=== PATIENT | male | born 1940 | race Caucasian/White ===

== ENCOUNTER 2016-07-03 13:34 | Inpatient (IN) ==
[2016-07-03] MEDS ORDERED: ASPIRIN PO STA (13:41)
[2016-07-03 13:56] LABS: BASO% 0.1 % (0.0-0.8); HEMATOCRIT 41.6 % (42.0-52.0); HEMOGLOBIN 14.4 g/dL (14.0-18.0); IMM GRAN# 0.18 X1000 (0.0-0.04); IMM GRAN% 1.1 % (0.0-0.5); LYMPH% 5.5 % (20.5-51.1); MANUAL DIFF NEEDED? NO; MCH 33.4 PG (27-31); MCHC 34.6 g/dL (33-37); MCV 96.5 FL (81-99); MONO# 1.27 X1000 (0.11-0.59); MONO% 7.8 % (1.7-9.3); NEUT% 85.5 % (42.2-75.2); PLT 275 X1000 (130-400); RBC 4.31 XMIL (4.7-6.1)
[2016-07-03 14:05] LABS: INR 0.92 (0.86-1.15); PROTIME 12.7 Seconds (12.1-15.5)
[2016-07-03 14:06] LABS: PTT PL 29.9 Seconds (22.6-43.9)
[2016-07-03 14:12] LABS: ALBUMIN 4.2 g/dL (3.5-5.0); CALCIUM 9.7 mg/dL (8.8-10.2); MAGNESIUM 1.4 mg/dL (1.5-2.7); POTASSIUM 4.5 mmol/L (3.5-5.1); TOTAL BILIRUBIN 0.7 mg/dL (0.20-1.00); TOTAL PROTEIN 7.4 g/dL (6.3-8.3)
--- NOTE | 2016-07-03 14:36 | EKG Report ---
Test Performed on : 07/03/2016 1:43:42 PM Test Reason : CHEST PAIN Blood Pressure : / mmHG Vent. Rate : 115 BPM Atrial Rate : 345 BPM P-R Int : 000 ms QRS Dur : 080 ms QT Int : 296 ms P-R-T Axes : 019 014 065 degrees QTc Int : 409 ms Atrial flutter. with 3:1 AV conduction. Abnormal ECG When compared with ECG of 23-MAY-2016 13:25, Atrial flutter. has replaced Sinus rhythm. Unconfirmed Result
[2016-07-03] MEDS ORDERED: NS 1,000 ML IV ONE (14:44)
[2016-07-03 14:50] LABS: CK INDEX 2.5 (0.0-2.5); CK-MB 6.52 ng/mL (0.0-5.0)
--- NOTE | 2016-07-03 15:13 | Diag Imaging Result Document ---
PROCEDURE NAME: CHEST-2 VIEWS - 07/03/2016 FRONTAL AND LATERAL CHEST, 2 VIEWS. COMPARISON: Compared to 05/23/2016. FINDINGS: There are sternal wires and surgical clips. Heart is not enlarged. No pleural effusions. Atelectasis or fibrosis in the left base. No free air beneath the diaphragm. IMPRESSION: Stable chest.
[2016-07-03] MEDS ORDERED: MAGNESIUM SULFATE 4 GM/S.W.I. 4 GM/100 ML IVPB IV ONE (15:21)
[2016-07-03] MEDS ORDERED: CARDIZEM IV ONE (15:27)
--- NOTE | 2016-07-03 15:44 | Diag Imaging Result Document ---
PROCEDURE NAME: HEAD W/O CONTRAST - 07/03/2016 CT BRAIN WITHOUT CONTRAST: FINDINGS: No parenchymal hemorrhage. No epidural or subdural hematoma. No subarachnoid hemorrhage. No skull fracture. There is diffuse atrophy with mild microvascular ischemic changes. No sinus opacification. No air-fluid levels. IMPRESSION: 1. No hemorrhage. No injury. 2. Atrophy with chronic microvascular ischemic changes. A preliminary report was given at 3:24 p.m.
--- NOTE | 2016-07-03 16:52 | Diag Imaging Result Document ---
PROCEDURE NAME: SHOULDER-LEFT - 07/03/2016 LEFT SHOULDER THREE VIEWS INCLUDING AN AXILLARY Y VIEW: FINDINGS: No separation at the acromioclavicular joint. No fracture. No dislocation. IMPRESSION: No acute abnormality.
[2016-07-03] MEDS ORDERED: VENTOLIN HFA INH PRN (16:53)
[2016-07-03] MEDS ORDERED: APRESOLINE IV PRN (16:53)
--- NOTE | 2016-07-03 16:55 | HISTORY AND PHYSICAL ---
PRIMARY CARE PHYSICIAN: Dr. Mervin Lazaro. CHIEF COMPLAINT: Altered mental status and having hallucinations. Also had a fall on Tuesday with some left shoulder pain. HISTORY OF PRESENTING ILLNESS: This is a 75-year-old male, who presents to [facility] ER with complaints of altered mental status, having hallucinations. Patient's is at bedside and states that he had a fall on Tuesday at home. He did not lose any consciousness. Did complain of some left shoulder pain but over the past 2 or 3 days since the fall he has had a decreased appetite and not been drinking as well, primarily only drinking only Coke and coffee. Now she states he has been seeing people enter their home and move around the home that are not present, increased confusion. When he arrived to the emergency room his white blood cell count was 16.28. His sodium was 119. Chloride 78, BUN of 25 with a creatinine of 1.4. He is being admitted for further evaluation and treatment. PAST MEDICAL HISTORY: COPD, anxiety, depression and hypertension. PAST SURGICAL HISTORY: Heart stent placement. FAMILY HISTORY: Noncontributory. SOCIAL HISTORY: Currently lives with his . Smokes 1 pack of cigarettes a day for 55 years but has been quit for about 2 years. Denied any alcohol or illicit drug use. ALLERGIES: He does not have any known allergies. HOME MEDICATIONS: He takes ProAir inhalation p.r.n. Xanax 0.25 mg p.o. at bedtime. Brovana nebulizer b.i.d. Aspirin 81 mg p.o. daily. Pulmicort 0.25 mg inhalation b.i.d. Bupropion XL 150 p.o. b.i.d. Vitamin B12 with folic acid 1 sublingually daily. Vytorin 10/40 we will hold but he takes 1 daily. Loratadine 10 mg p.o. daily. Metoprolol 50 mg p.o. daily. Asmanex 220 mcg inhalation b.i.d. Benicar with hydrochlorothiazide 40/25 1 p.o. daily will be held. Prednisone 20 mg p.o. b.i.d. p.r.n. will be held. Spiriva 1 inhalation daily. LABORATORY DATA: Showed a white blood cell count of 16.28, hemoglobin of 14.4, hematocrit 41.6, platelets 275,000. PT and INR of 12.7 and 0.92 with a D-dimer of 0.40. Sodium of 119, potassium 4.5, chloride 78, CO2 25. BUN of 25, creatinine 1.4, glucose 121, magnesium 1.4. Creatine kinase was 256 with a CK-MB of 6.52, troponin less than 0.010 with a proBNP of 929. CT of the head is pending. Chest x-ray is pending. EKG showed some atrial fibrillation flutter at 115. REVIEW OF SYSTEMS: He denied any fever, chills, blurred vision, dizziness. Denied any chest pain, coughing, shortness of breath. He denied any abdominal pain, constipation , diarrhea, burning or hurting with urination. PHYSICAL EXAMINATION: VITAL SIGNS: On arrival showed a pulse of 113, respirations 26, blood pressure was 162/113. Saturating 95% on room air. GENERAL: This is a 75-year-old male, who is sitting up in the bed, and answers questions appropriately. HEENT: Normocephalic and atraumatic. Pupils are equal, round, reactive to light. Extraocular movements are intact. Oropharynx and nares are clear. NECK: Supple. LUNGS: Clear to auscultation bilaterally with equal lung expansion and chest wall movement. HEART: With irregular rate and rhythm. No murmurs, rubs, or gallops. ABDOMEN: Soft, nontender, nondistended. Bowel sounds are present x4 quadrants. EXTREMITIES: No clubbing, cyanosis, or edema. NEUROLOGICAL: The cranial nerves 2-12 are grossly intact. ASSESSMENT: 1. Altered mental status. 2. Hyponatremia. 3. Leukocytosis. 4. Acute kidney injury. 5. Hypomagnesemia. 6. Atrial flutter and it is unsure if this is a new diagnosis but it appears it may be. 7. Hypertension. PLAN: He is being admitted. Placed on telemetry. O2 per protocol. Neuro checks q.2 hours. Healthy heart diet. We will check a urine osmolality, creatinine and sodium. Will also check a urinalysis with possible reflex culture. We will recheck a BMP at 7 p.m. tonight. We are going to x-ray his left shoulder. Continue his home medications. Place on normal saline at 125 mL an hour. We will give him Cardizem 10 mg IV x1. We will give him some hydralazine 10 mg IV every 6 p.r.n. for a systolic greater than 180 and diastolic greater than 100. Pt is a full code. Dictated by PAM Mabry for Mert Florian MD cc: PAM Mabry MD Johnathan Scribe [facility] CENTERMadelin
[2016-07-03 17:24] LABS: URINE SOURCE CLEAN CATCH
[2016-07-03 17:34] LABS: BILIRUBIN URINE NEGATIVE (NEGATIVE); BLOOD URINE NEGATIVE (NEGATIVE); CLARITY CLEAR (CLEAR); COLOR YELLOW; GLUCOSE URINE NEGATIVE (NEGATIVE); LEUKOCYTES URINE TRACE (NEGATIVE); NITRITE URINE NEGATIVE (NEGATIVE); PROTEIN URINE NEGATIVE (NEGATIVE); SP GRAVITY URINE 1.005; UROBILINOGEN URINE NORMAL
[2016-07-03 17:38] LABS: UR CREAT RANDOM 57.2 mg/dL (14-26)
[2016-07-03] MEDS: NS 1,000 ML IV SCH ×2 (17:46→20:54)
[2016-07-03 18:04] LABS: URINE CAST NONE SEEN /LPF; URINE CRYSTAL NONE SEEN /HPF; URINE CULTURE PL NEEDED? YES; URINE EPITHELIAL CELLS <10 /HPF (<10); URINE WBC <10 /HPF (<10)
[2016-07-03] MEDS ORDERED: MOMETASONE FUROATE IH SCH (19:30)
[2016-07-03] MEDS: PULMICORT INH SCH (20:10)
[2016-07-03] MEDS: BROVANA NEB INH SCH (20:11)
[2016-07-03] MEDS: WELLBUTRIN XL PO SCH (20:53)
[2016-07-03] MEDS: XANAX PO SCH (20:53)
[2016-07-03] MEDS ORDERED: MOMETASONE FUROATE 220 MCG IH SCH (21:00)
[2016-07-03 22:02] LABS: CALCIUM 9.1 mg/dL (8.8-10.2); POTASSIUM 4.2 mmol/L (3.5-5.1)
[2016-07-04] MEDS: NS 1,000 ML IV SCH ×4 (01:48→20:52)
[2016-07-04 06:20] LABS: MANUAL DIFF NEEDED? NO
[2016-07-04 06:25] LABS: BASO% 0.1 % (0.0-0.8); EOS# 0.05 X1000 (0.0-0.7); EOS% 0.5 % (0.0-10.0); HEMATOCRIT 36.3 % (42.0-52.0); HEMOGLOBIN 12.5 g/dL (14.0-18.0); IMM GRAN# 0.12 X1000 (0.0-0.04); IMM GRAN% 1.1 % (0.0-0.5); LYMPH# 1.92 X1000 (1.2-3.4); MCH 33.1 PG (27-31); MCHC 34.4 g/dL (33-37); MONO# 1.34 X1000 (0.11-0.59); MONO% 12.6 % (1.7-9.3); MPV 8.1 FL (7.4-10.4); NEUT% 67.7 % (42.2-75.2); PLT 197 X1000 (130-400); RBC 3.78 XMIL (4.7-6.1)
[2016-07-04 06:57] LABS: AGAP 15; BUN 18 mg/dL (8-22); CALCIUM 8.5 mg/dL (8.8-10.2); CHLORIDE 87 mmol/L (98-107); COSMO 254; POTASSIUM 3.5 mmol/L (3.5-5.1); SODIUM 126 mmol/L (136-145); TCO2 24 mmol/L (25-35)
[2016-07-04] MEDS: VITAMIN B-12 PO SCH (08:46)
[2016-07-04] MEDS: TOPROL XL PO SCH (08:46)
[2016-07-04] MEDS: WELLBUTRIN XL PO SCH ×2 (08:46→20:53)
[2016-07-04] MEDS: ASPIRIN EC PO SCH (08:46)
[2016-07-04] MEDS: CLARITIN PO SCH (08:46)
[2016-07-04] MEDS: BROVANA NEB INH SCH ×2 (11:01→19:32)
[2016-07-04] MEDS: SPIRIVA INH SCH (11:01)
[2016-07-04] MEDS: PULMICORT INH SCH ×2 (11:01→19:32)
[2016-07-04] MEDS ORDERED: SAMSCA PO ONE ×2 (14:02→16:15)
--- NOTE | 2016-07-04 16:39 | PROGRESS NOTE ---
DATE: 07/04/2016 SUBJECTIVE: Today Mr. Odonnell refers to be doing a little better. Continued to have episode of wax and wane memory issues. OBJECTIVE: Vitals: Blood pressure is 130/88, pulse of 100, respirations 18, temperature 98.6 degrees. General: Mr. Odonnell 75-year-old male. He is in bed, not seemingly distressed. HEENT: Mucosa is pink, slightly dry. Anicteric and acyanotic. Neck: Supple. Chest: Barrel shape. Air entry bilaterally reduced. There is some end-expiratory wheezing and there is prolonged expiratory phase of respiration but no crepitations. Cardiovascular: Regular rate and rhythm. No murmurs, no rubs. No gallops. There is an old sternotomy scar on the anterior chest wall. Abdomen: Soft, is distended and nontender. CENTRAL STERILE TECH: Patient is alert, is oriented to person and to place. Was disoriented to time. Patient was not able to tell me the name of the pharmacy coordinator early this morning however when I went back this afternoon and the was there he was more alert and was able to tell me the name of the President. There is no focal neurological deficit. LABORATORY DATA: WBC is 10.66, hemoglobin is 12.5, platelet count is 197,000. Chemistry. Sodium is 126, potassium is 3.5, chloride is 87, bicarb is 24, serum osmolality has been 248, 254, the urine osmolarity however is 391 with urine sodium of 43. ASSESSMENT: 1. Altered mental status on presentation due to metabolic encephalopathy. This seems to be improving. 2. Baseline cognitive decline likely due to Alzheimer dementia. 3. Dehydration improved. 4. Hyponatremia. I think this is multifactorial. Patient seems clinically dehydrated and he is responding very well to intravenous hydration however the urinalysis is also consistent with syndrome of inappropriate antidiuretic hormone secretion. We would therefore continue with gentle hydration but I will give the patient also a dose of Samsca to make sure we do not retain any free water. 5. History of chronic obstructive pulmonary disease noted. 6. Atrial flutter on presentation. This is stable. Now I think it is paroxysmal and patient will need to be evaluated on outpatient basis with Cardiology. He would however will need to be on anticoagulation which we will start with Eliquis. 7. Acute kidney injury secondary to volume depletion. This has improved. So in general Mr. Odonnell is doing a whole lot better. Will continue with the gentle hydration, give him a dose of Samsca, start him on Eliquis for anticoagulation due to atrial flutter which resolved with a dose of diltiazem on admission and I think eventually patient will need followup with cardiology for the atrial fibrillation when he gets discharged. I think if everything continues to improve will be able to discharge him tomorrow. cc: Mert Florian MD
[2016-07-04] MEDS: XANAX PO SCH (20:53)
[2016-07-05] MEDS: NS 1,000 ML IV SCH ×3 (02:09→10:01)
[2016-07-05 06:47] LABS: AGAP 12; BUN 13 mg/dL (8-22); CALCIUM 8.4 mg/dL (8.8-10.2); CHLORIDE 96 mmol/L (98-107); COSMO 265; POTASSIUM 3.7 mmol/L (3.5-5.1); SODIUM 133 mmol/L (136-145); TCO2 24 mmol/L (25-35)
[2016-07-05] MEDS: BROVANA NEB INH SCH (08:01)
[2016-07-05] MEDS: SPIRIVA INH SCH (08:01)
[2016-07-05] MEDS: PULMICORT INH SCH (08:01)
[2016-07-05] MEDS: WELLBUTRIN XL PO SCH (08:41)
[2016-07-05] MEDS: ASPIRIN EC PO SCH (08:41)
[2016-07-05] MEDS: TOPROL XL PO SCH (08:41)
[2016-07-05] MEDS: VITAMIN B-12 PO SCH (08:41)
[2016-07-05] MEDS: CLARITIN PO SCH (08:41)
[2016-07-05 16:31] VITALS: BP 135/75
[2016-07-05] MEDS ORDERED: ELIQUIS PO SCH (21:00)
--- NOTE | 2016-07-06 06:52 | DISCHARGE SUMMARY ---
ADMISSION DATE: 07/03/2016 DISCHARGE DATE: 07/05/2016 DISCHARGE DIAGNOSES: 1. Encephalopathy, metabolic due to hyponatremia. 2. Alzheimer's dementia. 3. Dehydration. 4. Hyponatremia, likely related to possibly hydrochlorothiazide affect versus syndrome of inappropriate antidiuretic hormone hypersecretion. 5. Chronic obstructive pulmonary disease. 6. Atrial flutter. 7. Acute kidney injury. CONSULTATIONS: None. HISTORY: Briefly, this is a 75-year-old male presenting with confusion, passed out. Initial white count 16. Sodium was 119, chloride 78, BUN 25, creatinine 1.4. He is on olmesartan/hydrochlorothiazide. He also had a flutter, which was a new diagnosis. He was a little bit tachycardic but not above 120. Clinically, he improved. By the following day, his sodium had increased to a level of around 126. He was given Samsca based on his urine results but did show an elevated urine osmolarity and a relatively elevated urine sodium. Normal saline essentially resolved the issue. By the his sodium had come up to 133. Clinically, he was stable and felt stable for discharge. He was placed on Eliquis because of A flutter and CHADS VASc 2 scoring. DISCHARGE MEDICINES: Are ProAir p.r.n., Xanax 0.25 at bedtime, Eliquis 5 b.i.d., Brovana 15 b.i.d., aspirin 81 daily, Pulmicort 0.25 b.i.d., bupropion 150 b.i.d., B12 sublingual daily, Vytorin 10/40 daily, loratadine 10 daily, Toprol-XL 50 daily, Asmanex 220 b.i.d. Benicar was switched to plain Benicar 40 daily. Prednisone on a p.r.n. dose and Spiriva daily. DISCHARGE CONDITION: Stable. DISCHARGE INSTRUCTIONS: He will need repeat basic in about a week. Monitor his salt and water intake. TIME SPENT: Thirty-five minute discharge. cc: MD Mervin Blankenship MD
--- NOTE | 2016-07-07 19:01 | PROVIDER DOCUMENTATION ---
This chart was entered by Heidi Rebolledo Scribe, acting as scribe for Niko Robles MD. HPI-Neurological Disorder - General Chief Complaint: Altered Mental Status Stated Complaint: COPD/PALPITATIONS/AMS Time Seen by Provider: 07/03/16 14:13 Source: patient, family Allergies/Adverse Reactions: Patient Allergies Allergy/AdvReac Type Severity Reaction Status Date / Time No Known Allergies Allergy Verified 07/03/16 13:45 Home Medications: Home Medication List Medication Instructions Recorded Confirmed Last Taken Type Aspirin [Ecotrin] 81 mg PO DAILY 08/23/15 07/03/16 08/22/15 History Ezetimibe/Simvastatin [Vytorin 1 each PO DAILY 08/23/15 07/03/16 08/22/15 History 10-40 mg Tablet] Metoprolol Succinate E.r. [Toprol 50 mg PO DAILY 08/23/15 07/03/16 08/23/15 History Xl] Mometasone Furoate [Asmanex] 220 mcg IH BID 08/23/15 07/03/16 08/22/15 History Albuterol Sulfate [Proair Hfa] 1 puff IN PRN PRN 06/08/16 07/03/16 Unknown History Alprazolam 0.25 mg PO HS 06/08/16 07/03/16 Unknown History Arformoterol Neb [Brovana Neb] 15 mcg NEB BID 06/08/16 07/03/16 Unknown History Budesonide Inhaler [Pulmicort 0.25 mg IN BID 06/08/16 07/03/16 Unknown History Flexhaler] Bupropion HCl [Bupropion Xl] 150 mg PO BID 06/08/16 07/03/16 Unknown History Cyanocobalamin/Folic Acid [B-12 1 each SL DAILY 06/08/16 07/03/16 Unknown History 1,000 Mcg Sub Tablet] Loratadine [Alavert] 10 mg PO DAILY 06/08/16 07/03/16 Unknown History Tiotropium [place] Inhaler 1 puff IH DAILY 06/08/16 07/03/16 Unknown History [Spiriva] Prednisone 20 mg PO BID PRN PRN 07/03/16 07/03/16 07/03/16 History Apixaban [Eliquis] 5 mg PO BID #60 tablet 07/05/16 Unknown Rx Olmesartan [Benicar] 40 mg PO DAILY #30 tablet 07/05/16 Unknown Rx - History of Present Illness-Neuro Nature of Presenting Problem: 75 yo WM presents to ED with cc of hallucinations, altered mental status, and dizziness. Pt states he has been seeing people entering and moving around his home, but family reports there is no one there. He also complains of L shoulder pain from an injury in which he tripped and fell from standing height. Pt has hx of COPD. Upon arrival to ED, pt is oriented and appears nontoxic. Onset/Duration: reports: unsure Timing: reports: still present Context: reports: other (hallucinations) Character of Altered Mental Status: reports: disoriented (appears fairly well oriented in ED but admits to hallucinations), confused (appears relatively lucid in ED but admits to hallucinations). denies: combative, seizure activity Any recent trauma/injury?: reports: minor (fall from standing height, contusions on LLQ and L arm) New weakness or altered sensation location:: reports: none Cognitive Baseline: alert, oriented x3 Associated Symptoms: reports: dizziness Review of Systems - Adult - REVIEW OF SYSTEMS - ADULT Constitutional: reports: no symptoms reported. denies: chills, fever Eyes: reports: no symptoms reported. denies: blurred vision, double vision Ears, Nose, Mouth & Throat: reports: no symptoms reported. denies: ear pain, sinus problem Cardiovascular: reports: no symptoms reported. denies: chest pain, heart murmur Respiratory: reports: no symptoms reported. denies: cough, shortness of breath Gastrointestinal: reports: no symptoms reported. denies: abdominal pain, nausea Genitourinary: reports: no symptoms reported. denies: dysuria, flank pain Musculoskeletal: reports: joint pain (Pt reports pain in L elbow from fall injury) Integumentary: reports: no symptoms reported Neurological: reports: dizziness/vertigo, other (hallucinatios). denies: headache/migraines Psychiatric: reports: other (hallucinations; no hx of psychosis) Endocrine: reports: no symptoms reported. denies: cold intolerance, heat intolerance Hematologic/Lymphatic: reports: no symptoms reported. denies: blood clots, lymphedema Allergic/Immunologic: reports: no symptoms reported. denies: allergic reactions , allergic rhinitis All Other Systems: Reviewed and Negative Past History - Adult - PAST MEDICAL HISTORY-ADULT Review of Records: reports: Old Records Reviewed, Nursing Assessment Review, Medications Reviewed Respiratory: reports: COPD - PRIOR SURGERIES/PROCEDURES Surgical/Procedure History: reports: cardiac stent - IMMUNIZATION STATUS Childhood Immunizations: See Nurse Assessment Flu Vaccine: See Nurse Assessment Physical Exam- Neurological - Physical Exam-Neuro Initial Vital Signs Reviewed: Yes General Appearance: mild distress, slow to respond Eye Exam: bilateral eye: normal inspection, PERRL, EOMI HENMT: normocephalic/atraumatic, moist mucous membranes Head Injury: no evidence of injury Neck: non-tender, full range of motion, supple Respiratory: chest non-tender, rhonchi Cardiovascular: normal peripheral pulses, regular rate, rhythm Abdominal Exam: normal bowel sounds, non tender, soft Lymphatic: no adenopathy Extremity: other (Painful ROM L shoulder) lan analyst Exam: normal hearing, normal speech, PERRL Motor/Sensory: no motor deficit, no sensory deficit Neurologic: grossly normal, no motor/sensory deficits Integumentary: other (Contusions on LLQ and L arm from recent fall from standing height) Psych/Mental Status: normal mood/affect, normal thought content, normal thought process, oriented x 3 - Glascow Coma Scale Best Eye Response: (4) open spontaneously Best Verbal Response: (5) oriented Best Motor Response: (6) obeys commands Total Glascow Score: 15 Progress - PLAN OF CARE/RESULTS Progress/Plan/Lab Results: Orders Category Date Time Status Admit - [facility] Routine AdmDCTranf 07/03/16 14:44 Ordered Cardiac Monitoring DIRECTED Care 07/03/16 13:41 Completed Neurological Check q2h Care 07/03/16 14:44 Active Saline Loc NOW Care 07/03/16 13:41 Completed Vital Signs Order ARRIVAL TO ROOM Care 07/03/16 14:44 Completed Heart Healthy Diet Diet 07/03/16 15:08 Completed CHEST-2 VIEWS [RAD] Stat Exams 07/03/16 13:41 Completed HEAD W/O CONTRAST [CT] Stat Exams 07/03/16 14:40 Completed SHOULDER-LEFT [RAD] Routine Exams 07/03/16 15:10 Completed BASIC METABOLIC PANEL [CHEM] Timed Lab 07/03/16 21:00 Completed CBC WITH ELECTRONIC DIFF [HEME] Stat Lab 07/03/16 13:35 Completed CK PROFILE [SP CHEM] Stat Lab 07/03/16 13:35 Completed COMPREHENSIVE METABOLIC PANEL [CHEM] Stat Lab 07/03/16 13:35 Com[address] D-D[address]ER [address] [COAG] Stat Lab 07/03/16 13:35 Completed MAGNESIUM [CHEM] Routine Lab 07/04/16 05:45 Completed MAGNESIUM [CHEM] Stat Lab 07/03/16 13:35 Completed PRO B-NATRIURETIC PEPTIDE Stat Lab 07/03/16 13:35 Completed PROTIME WITH INR PL [COAG] Stat Lab 07/03/16 13:[address] [COAG] Stat Lab 07/03/16 13:35 Completed TROPONIN T Stat Lab 07/03/16 13:35 Completed UR CREAT RANDOM [URCHEM] Routine Lab 07/03/16 15:07 Completed UR OSMOLALITY [CHEM] Stat Lab 07/03/16 15:45 Completed UR SODIUM [URCHEM] Routine Lab 07/03/16 15:07 Completed 0.9% Sodium Chloride Inj [Ns] 1,000 ml Med 07/03/16 14:44 Discontinued IV 125 mls/hr 0.9% Sodium Chloride Inj [Ns] 1,000 ml Med 07/03/16 16:53 Discontinued IV 125 mls/hr Albuterol Sulfate Inhaler [Ventolin Hfa] Med 07/03/16 16:53 Discontinued 1 puff INH PRN PRN Alprazolam [Xanax] Med 07/03/16 21:00 Discontinued 0.25 mg PO HS Arformoterol Neb [Brovana Neb] Med 07/03/16 19:30 Discontinued 15 microgm INH RTBID Aspirin Med 07/03/16 13:41 Discontinued 325 mg PO STAT STA Aspirin EC Med 07/04/16 09:00 Discontinued 81 mg PO DAILY Budesonide [Pulmicort] Med 07/03/16 19:30 Discontinued 0.25 mg INH RTBID Bupropion X.l. [Wellbutrin Xl] Med 07/03/16 21:00 Discontinued 150 mg PO BID Cyanocobalamin [Vitamin B-12] Med 07/04/16 09:00 Discontinued 1,000 microgm PO DAILY Loratadine [Claritin] Med 07/04/16 09:00 Discontinued 10 mg PO DAILY Magnesium Sulfate 4 gm/S.w.i. [Magnesium Sulfate 4 gm/S Med 07/03/16 15:21 Discontinued .w.i] 4 gm in 100 ml IV NOW Metoprolol Succinate E.r. [Toprol Xl] Med 07/04/16 09:00 Discontinued 50 mg PO DAILY Tiotropium [place] Inhaler [Spiriva] Med 07/04/16 07:30 Discontinued 1 puff INH RTDAILY Oxygen Device Routine Oth 07/03/16 14:46 Completed Telemetry [OM.EQ] Routine Oth 07/03/16 14:44 Active EKG [EKG] Stat Ther 07/03/16 13:41 Draft Transfer/Admit Order [TRANSFER] Routine Transfer 07/03/16 14:46 Completed Result Diagrams: 07/04/16 05:45 07/05/16 05:25 - EKG 1 Time of EKG reading by physician:: 13:43 EKG Read and Signed by:: Niko Robles EKG Interpretation (*Must complete 3 of following elements*): Abnormal Rate: 115 Rhythm: atrial flutter with 3:1 AV conduction QRS: normal Departure - Departure Time of Disposition Decision: 15:22 DIAGNOSIS: Hyponatremia Altered mental state Qualifiers: Altered mental status type: unspecified Qualified Code(s): R41.82 - Altered mental status, unspecified Disposition: ADMITTED INPATIENT 09 Certified Medical Emergency: Emergent Condition: Stable - Critical Care Note This patient required my direct & personal management of CC.: No Attestation - Physician/ KAYLA Attestation Patient care was provided by Advanced Practice Provider:: No This chart was documented by the indicated scribe, (Heidi Rebolledo Scribe) and accurately reflects the services I performed and decisions made by me, Niko Robles MD, as attested by the provider's signature.
== END 2016-07-05 16:30 | disposition home health service (06) ==
LOC: P.ED 13:34 → P.MEDSURG 15:22 → SUATTDRO 15:22
PROVIDERS: ATTEND Internal Medicine

== ENCOUNTER 2016-07-25 17:47 | Inpatient (IN) ==
[2016-07-25] MEDS ORDERED: NS 1,000 ML IV PRN ×2 (18:30→20:20)
[2016-07-25] MEDS ORDERED: LASIX IV ONE (18:30)
[2016-07-25] MEDS ORDERED: NITROGLYCERIN TOP ONE (18:30)
[2016-07-25 18:54] LABS: MANUAL DIFF NEEDED? NO
[2016-07-25 19:14] LABS: BASO% 0.1 % (0.0-0.8); EOS# 0.01 X1000 (0.0-0.7); EOS% 0.1 % (0.0-10.0); HEMATOCRIT 36.6 % (42.0-52.0); HEMOGLOBIN 11.3 g/dL (14.0-18.0); IMM GRAN# 0.05 X1000 (0.0-0.04); IMM GRAN% 0.4 % (0.0-0.5); LYMPH# 1.32 X1000 (1.2-3.4); LYMPH% 11.7 % (20.5-51.1); MCH 32.5 PG (27-31); MCHC 30.9 g/dL (33-37); MCV 105.2 FL (81-99); MONO# 0.98 X1000 (0.11-0.59); MONO% 8.7 % (1.7-9.3); MPV 8.5 FL (7.4-10.4); PLT 280 X1000 (130-400); RBC 3.48 XMIL (4.7-6.1)
[2016-07-25 19:22] LABS: AGAP 11; ALKALINE PHOSPHATASE 50 U/L (32-122); BUN 11 mg/dL (8-22); CALCIUM 8.8 mg/dL (8.8-10.2); CHLORIDE 95 mmol/L (98-107); COSMO 272; GOT 19 U/L (10-34); GPT 19 U/L (10-44); POTASSIUM 4.3 mmol/L (3.5-5.1); SODIUM 134 mmol/L (136-145); TCO2 28 mmol/L (25-35); TOTAL PROTEIN 6.5 g/dL (6.3-8.3)
[2016-07-25] MEDS ORDERED: TYLENOL PO PRN (20:11)
[2016-07-25] MEDS ORDERED: ZOFRAN PO PRN (20:11)
--- NOTE | 2016-07-25 20:24 | PROVIDER DOCUMENTATION ---
This chart was entered by Sandra Alberts Scribe, acting as scribe for Anthony Castellanos MD. HPI-Respiratory General - General Chief Complaint: Shortness of Breath Stated Complaint: CONFUSION/B/P PROBLEMS Time Seen by Provider: 07/25/16 18:19 Source: patient Allergies/Adverse Reactions: Patient Allergies Allergy/AdvReac Type Severity Reaction Status Date / Time No Known Allergies Allergy Verified 07/03/16 13:45 Home Medications: Home Medication List Medication Instructions Recorded Confirmed Last Taken Type Aspirin [Ecotrin] 81 mg PO DAILY 08/23/15 07/25/16 07/25/16 History Ezetimibe/Simvastatin [Vytorin 1 each PO DAILY 08/23/15 07/25/16 07/25/16 History 10-40 mg Tablet] Metoprolol Succinate E.r. [Toprol 50 mg PO DAILY 08/23/15 07/25/16 07/25/16 History Xl] Mometasone Furoate [Asmanex] 220 mcg IH BID 08/23/15 07/25/16 07/25/16 History Albuterol Sulfate [Proair Hfa] 1 puff IN PRN PRN 06/08/16 07/25/16 07/25/16 History Alprazolam 0.25 mg PO HS 06/08/16 07/25/16 07/25/16 History Arformoterol Neb [Brovana Neb] 15 mcg NEB BID 06/08/16 07/25/16 07/25/16 History Budesonide Inhaler [Pulmicort 0.25 mg IN BID 06/08/16 07/25/16 07/25/16 History Flexhaler] Bupropion HCl [Bupropion Xl] 150 mg PO BID 06/08/16 07/25/16 07/25/16 History Cyanocobalamin/Folic Acid [B-12 1 each SL DAILY 06/08/16 07/25/16 07/25/16 History 1,000 Mcg Sub Tablet] Loratadine [Alavert] 10 mg PO DAILY 06/08/16 07/25/16 07/25/16 History Tiotropium Arvilla Inhaler 1 puff IH DAILY 06/08/16 07/25/16 07/25/16 History [Spiriva] Prednisone 20 mg PO BID PRN PRN 07/03/16 07/25/16 07/25/16 History Apixaban [Eliquis] 5 mg PO BID #60 tablet 07/05/16 07/25/16 07/25/16 Rx Olmesartan [Benicar] 40 mg PO DAILY #30 tablet 07/05/16 07/25/16 07/25/16 Rx - History of Present Illness-Resp Nature of Presenting Problem: Pt is a 75 year old male who came to the ED with a cc of SOB. Pt reports that he was recently admitted to the Hospital with low sodium. Pt reports that he thinks that is what is going on today. Pt is confused off and on all day and having trouble breathing. Quality of Pain: reports: none Severity in ED: reports: mild Onset/Duration: reports: gradual Timing: reports: still present Exposure: reports: unknown cause Cough Quality/Degree: reports: no cough Episode Frequency: chronic episodes Modifying Factors: improves with: nothing Associated Symptoms: reports: shortness of breath, short of breath Similar Symptoms Previously?: Yes Recently seen or treated by another doctor?: Yes Review of Systems - Adult - REVIEW OF SYSTEMS - ADULT Constitutional: denies: chills, fever Eyes: reports: no symptoms reported Ears, Nose, Mouth & Throat: reports: no symptoms reported Cardiovascular: reports: no symptoms reported Respiratory: reports: shortness of breath. denies: cough, pleurisy, wheezing Gastrointestinal: reports: no symptoms reported Genitourinary: reports: no symptoms reported Musculoskeletal: reports: no symptoms reported Integumentary: reports: no symptoms reported Neurological: reports: other (AMS). denies: seizure, syncope Psychiatric: reports: no symptoms reported Endocrine: reports: no symptoms reported Hematologic/Lymphatic: reports: no symptoms reported Allergic/Immunologic: reports: no symptoms reported All Other Systems: Reviewed and Negative Past History - Adult - PAST MEDICAL HISTORY-ADULT Review of Records: reports: Nursing Assessment Review Major Childhood Illnesses: reports: denies history Cardiovascular: reports: HTN, hyperlipidemia Respiratory: reports: COPD Gastrointestinal: reports: denies history Obstetrical/Gynecological: reports: denies history Genitourinary: reports: denies history Musculoskeletal: reports: denies history Neurological: reports: dementia Endocrine/Immune: reports: denies history Other Conditions: reports: denies history - PRIOR SURGERIES/PROCEDURES Surgical/Procedure History: reports: cardiac stent - IMMUNIZATION STATUS Childhood Immunizations: See Nurse Assessment Flu Vaccine: See Nurse Assessment - FAMILY HISTORY Family History: reviewed, not pertinent Physical Exam-General - PHYSICAL EXAM-ADULT Initial Vital Signs Reviewed: Yes - CONSTITUTIONAL General Appearance: alert, no apparent distress - EYES Eyes: PERRL/EOMI, pink conjunctivae - HEAD, EARS, NOSE, MOUTH & THROAT HENMT: normocephalic/atraumatic, moist mucous membranes - NECK Neck: non-tender - RESPIRATORY Respiratory: chest non-tender, crackles (bilat bases) - CARDIOVASCULAR Cardiovascular: tachycardia - GASTROINTESTINAL (ABDOMEN) Abdominal Exam: normal bowel sounds, non tender - MUSCULOSKELETAL Back Exam: normal inspection, no CVA tenderness Extremity: normal range of motion, non-tender - SKIN Integumentary: normal color, normal turgor - NEUROLOGIC Neurologic: cell tester II-XII nml as tested, grossly normal - PSYCHIATRIC Psych/Mental Status: normal mood/affect, normal thought content, normal thought process, oriented x 3 Progress - PLAN OF CARE/RESULTS Progress/Plan/Lab Results: Vital Signs - 8 hr 07/25/16 17:52 07/25/16 19:27 Temperature 98.5 F Pulse Rate 114 H 103 H Respiratory Rate 20 20 Blood Pressure 159/98 146/94 O2 Sat by Pulse Oximetry 96 98 Laboratory Results - last 24 hr 07/25/16 07/25/16 07/25/16 18:45 18:45 18:45 WBC 11.30 H RBC 3.48 L Hgb 11.3 L Hct 36.6 L MCV 105.2 H MCH 32.5 H MCHC 30.9 L RDW Std Deviation 13.9 Plt Count 280 MPV 8.5 Immature Gran % (Auto) 0.4 Neut % (Auto) 79.0 H Lymph % (Auto) 11.[address] [place] % (Auto) 8.7 Eos % (Auto) 0.1 Baso % (Auto) 0.1 Immature Gran # (Auto) 0.05 H Neut # (Auto) 8.93 H Lymph # (Auto) 1.32 [place] # (Auto) 0.98 H Eos # (Auto) 0.01 Baso # (Auto) 0.01 Sodium 134 L Potassium 4.3 Chloride 95 L Carbon Dioxide 28 Anion Gap 11 BUN 11 Creatinine 1.1 Estimated GFR/1.73 m2 > 60 BUN/Creatinine Ratio 10 Glucose 168 H Calculated Osmolality 272 Calcium 8.8 Total Bilirubin 0.20 AST 19 ALT 19 Alkaline Phosphatase 50 Troponin T Hpc-K-Vausschlwye Pept 1340 H Total Protein 6.5 Albumin 4.0 Globulin 3.0 Albumin/Globulin Ratio 2.0 07/25/16 18:45 WBC RBC Hgb Hct MCV MCH MCHC RDW Std Deviation Plt Count MPV Immature Gran % (Auto) Neut % (Auto) Lymph % (Auto) [place] % (Auto) Eos % (Auto) Baso % (Auto) Immature Gran # (Auto) Neut # (Auto) Lymph # (Auto) [place] # (Auto) Eos # (Auto) Baso # (Auto) Sodium Potassium Chloride Carbon Dioxide Anion Gap BUN Creatinine Estimated GFR/1.73 m2 BUN/Creatinine Ratio Glucose Calculated Osmolality Calcium Total Bilirubin AST ALT Alkaline Phosphatase Troponin T < 0.010 Qav-B-Menktcyasfr Pept Total Protein Albumin Globulin Albumin/Globulin Ratio Orders Category Date Time Status Admit - [facility] Routine AdmDCTranf 07/25/16 20:11 Ordered Activity - Bed Rest with BRP ORDERED Care 07/25/16 20:11 Active Intake and Output-Strict ORDERED Care 07/25/16 20:11 Active Neurological Check PRN Care 07/25/16 20:11 Active Resuscitation Status Routine Care 07/25/16 20:11 Ordered Saline Loc DIRECTED Care 07/25/16 20:11 Active Telemetry Placement ORDERED Care 07/25/16 20:13 Active Vital Signs Order ROUTINE Care 07/25/16 20:11 Active Heart Healthy Diet Diet 07/25/16 20:13 Active NPO Diet 07/26/16 00:01 Active CHEST-2 VIEWS [RAD] Stat Exams 07/25/16 18:24 Taken BNP [PRO B-NATRIURETIC PEPTIDE] Stat Lab 07/25/16 18:45 Completed CBC WITH DIFF [HEME] Stat Lab 07/25/16 18:45 Completed COMPREHENSIVE METABOLIC PANEL [CHEM] Routine Lab 07/26/16 07:00 Ordered COMPREHENSIVE METABOLIC PANEL [CHEM] Stat Lab 07/25/16 18:45 Completed TROPONIN T Routine Lab 07/26/16 07:00 Ordered TROPONIN T Stat Lab 07/25/16 18:45 Completed TROPONIN T Stat Lab 07/25/16 20:11 Ordered 0.9% Sodium Chloride Inj [Ns] 1,000 ml Med 07/25/16 18:30 Discontinued IV 100 mls/hr 0.9% Sodium Chloride Inj [Ns] 1,000 ml Med 07/25/16 20:20 Active IV 70 mls/hr Acetaminophen [Tylenol] Med 07/25/16 20:11 Active 650 mg PO Q6H PRN PRN Furosemide [Lasix] Med 07/25/16 18:30 Discontinued 20 mg IV NOW ONE Furosemide [Lasix] Med 07/26/16 09:00 Ordered 40 mg IV DAILY Metoprolol Succinate E.r. [Toprol Xl] Med 07/25/16 21:00 Ordered 25 mg PO NOW Nitroglycerin Med 07/25/16 18:30 Discontinued 1 inch TOP NOW ONE Ondansetron [Zofran] Med 07/25/16 20:11 Active 4 mg PO Q6H PRN PRN Oxygen Device Routine Oth 07/25/16 20:13 Active Telemetry [OM.EQ] Routine Oth 07/25/16 20:11 Active EKG [EKG] Routine Ther 07/26/16 07:00 Ordered EKG [EKG] Stat Ther 07/25/16 20:11 Ordered Limited Echocardiogram Routine Ther 07/26/16 09:00 Ordered Transfer/Admit Order [TRANSFER] Routine Transfer 07/25/16 20:21 Ordered Result Diagrams: 07/25/16 18:45 07/25/16 18:45 - XRAY 1 XRAY Study: Chest (fibrosis left base of lung. Increased haziness in right lung compared to xray in 07/03/16) - CONSULTS/PCP/HOSPITALIST Notification #1 *Consult/PCP/Hospitalist*: Dr. Florian Time Discussed: 20:04 Departure - Departure Date of Disposition Decision: 07/25/16 Time of Disposition Decision: 20:00 DIAGNOSIS: CHF (congestive heart failure), NYHA class II Qualifiers: Congestive heart failure type: combined Congestive heart failure chronicity: acute on chronic Qualified Code(s): I50.43 - Acute on chronic combined systolic (congestive) and diastolic (congestive) heart failure Disposition: ADMITTED INPATIENT 09 Certified Medical Emergency: Emergent Condition: Fair Referrals and Follow-Ups: Mervin Kulkarni MD [Primary Care Provider] - - Critical Care Note This patient required my direct & personal management of CC.: No This chart was documented by the indicated scribe, (Sandra Alberts, Nadira) and accurately reflects the services I performed and decisions made by me, Anthony Castellanos MD, as attested by the provider's signature.
[2016-07-25] MEDS ORDERED: TOPROL XL PO ONE (21:00)
--- NOTE | 2016-07-26 07:41 | Diag Imaging Result Doc PS360 ---
EXAM: CHEST-2 VIEWS HISTORY: sob TECHNIQUE: Two views COMPARISON: 07/03/2016 FINDINGS: There are sternal wires and surgical clips. The left hemidiaphragm is elevated. Heart is not enlarged. The vessels are not distended. No pleural effusions. There are increased interstitial markings in the left. IMPRESSION: Small area of atelectasis or infiltrate in the left base. Electronically signed by Horacio Orozco 07/26/2016 7:39 AM
[2016-07-26] MEDS ORDERED: VENTOLIN HFA INH PRN (08:14)
[2016-07-26] MEDS ORDERED: TYLENOL PO PRN (08:49)
[2016-07-26] MEDS ORDERED: ASMANEX 220 MICROGM INHALER INH SCH (09:00)
[2016-07-26] MEDS ORDERED: LASIX IV SCH (09:00)
[2016-07-26] MEDS: CLARITIN PO SCH (09:17)
[2016-07-26] MEDS: ZETIA PO SCH (09:17)
[2016-07-26] MEDS: ELIQUIS PO SCH ×2 (09:17→21:23)
[2016-07-26] MEDS: ASPIRIN EC PO SCH (09:18)
[2016-07-26] MEDS: WELLBUTRIN XL PO SCH ×2 (09:18→21:23)
[2016-07-26] MEDS: ZOCOR PO SCH (09:18)
[2016-07-26] MEDS: BENICAR PO SCH (09:19)
[2016-07-26] MEDS ORDERED: NON-FORMULARY BULK MED INH SCH (09:19)
[2016-07-26] MEDS: TOPROL XL PO SCH (09:19)
[2016-07-26] MEDS: VITAMIN B-12 PO SCH (09:19)
[2016-07-26] MEDS: LEVAQUIN 500 MG/D5W 500 MG/100 ML IVPB IV SCH (09:19)
--- NOTE | 2016-07-26 09:59 | HISTORY AND PHYSICAL ---
PRIMARY CARE PHYSICIAN: Dr. Kulkarni. CHIEF COMPLAINT: Shortness of breath, increased confusion and a productive cough of yellow sputum that began yesterday. HISTORY OF PRESENTING ILLNESS: This is a 75-year-old male, who presented to [facility] ER with complaints of increased shortness of breath, productive cough of yellow sputum, and increased confusion. States he was in the hospital recently with a hyponatremia and felt that this may be the same symptoms. It is noted that he was admitted on 07/03/2016 through 07/05/2016 with a hyponatremia that resolved. Last night in the ER showed a white blood cell count of 11.30. His sodium was 134. He had a slight bump in his ProBNP at 1340. Chest x-ray showed a small area of atelectasis or infiltrate in the left base, so he was admitted to the medical unit for further evaluation and treatment. He was noted to be saturating 96% on 4 L via nasal cannula; that has since been reduced to 2 L and he saturating 95-97% . He had a slight increase in his blood pressure on arrival at 159/98. It is noted that he was given 20 mg of Lasix IV in the ER and he had an I O of 150 and 1750 out. PAST MEDICAL HISTORY: 1. COPD. 2. Anxiety. 3. Depression. 4. Hypertension. 5. Atrial fibrillation. 6. Atrial flutter. 7. Hyperlipidemia. 8. Some mild dementia. 9. Hyponatremia. PAST SURGICAL HISTORY: Heart stent placement. FAMILY HISTORY: Noncontributory. SOCIAL HISTORY: Currently lives with his . Was a 1 pack a day smoker for 56 years but quit 2 years ago and denies any alcohol or illicit drug use. ALLERGIES: He has no known drug allergies. HOME MEDICATIONS: 1. Prednisone 20 mg p.o. b.i.d. p.r.n. will be held. 2. ProAir 1 puff inhalation p.r.n. 3. Xanax 0.25 mg p.o. at bedtime. 4. Eliquis 5 mg p.o. b.i.d. 5. Brovana 15 mcg nebulizer b.i.d. 6. Aspirin 81 mg p.o. daily. 7. Budesonide inhaler 0.25 mg b.i.d. 8. Bupropion XL 150 mg p.o. b.i.d. 9. Cyanocobalamin 1 sublingually daily. 10. Vytorin 10/40 1 p.o. daily. 11. Loratadine 10 mg p.o. daily. 12. Metoprolol 50 mg p.o. daily. 13. Asmanex 220 mcg inhalation b.i.d. 14. Benicar 40 mg p.o. daily. 15. Spiriva 1 inhalation daily. LABORATORY DATA: Showed a white blood cell count of 11.30, hemoglobin 11.3, hematocrit 36.6, platelets 280,000. Sodium of 134, potassium 4.3, chloride 95, CO2 28, BUN of 11 , creatinine 1.1. Glucose 168. Troponin x2 sets was negative. ProBNP of 1340. Chest x-ray showed a small area of atelectasis or infiltrate in the left base. REVIEW OF SYSTEMS: He denied any fever, chills, blurred vision, dizziness. He denied any chest pain. He was positive for a productive cough of yellow sputum, shortness of breath, some increased confusion. Denied any abdominal pain, constipation, diarrhea. She was positive for some nausea. Denied vomiting, burning or hurting with urination. PHYSICAL EXAMINATION: On arrival, he had a temperature of 98.5 degrees, a pulse of 114, respirations 20, blood pressure 159/98 with saturating 96% on 4 L via nasal cannula. He has since been weaned down to 2 L and is saturating 95-97%. GENERAL: This is a 75-year-old male, who is lying in the bed and answers questions appropriately. HEENT: Normocephalic and atraumatic. Pupils are equal, round, and reactive to light. The extraocular movements are intact. The oropharynx and nares are clear. NECK: Supple. LUNGS: With some crackles to his bilateral bases on arrival, but is clear this morning. Equal lung expansion and chest wall movement noted. HEART: With regular rate and rhythm. No murmurs, rubs, or gallops. ABDOMEN: Soft, nontender, nondistended. Bowel sounds are present x4 quadrants. EXTREMITIES: No clubbing, cyanosis, or edema. NEUROLOGICAL: The cranial nerves 2-12 appear grossly intact. ASSESSMENT: 1. An acute congestive heart failure exacerbation. 2. A left lower lobe pneumonia. 3. Hypertension. 4. Hyperlipidemia. PLAN: He was admitted to the medical unit at [place]. We will do daily weights. We will check an echocardiogram and an EKG today. We will continue his home medications as previously identified. We will place on Levaquin 500 mg IV q.24, DuoNeb q.4 hours and we will recheck a CBC and BMP in the a.m. I am going to await the results of his echo before giving him anymore Lasix as his lungs sound clear this morning, and this may be more of the pneumonia than CHF, but again we will await for that echo. Pt is a full code. Dictated by PAM Mabry for Marcelo Almodovar MD cc: PAM Mabry MD John V. Irle, MD MTDD
[2016-07-26] MEDS: BROVANA NEB INH SCH ×2 (11:00→19:40)
[2016-07-26] MEDS: PULMICORT INH SCH ×2 (11:00→19:40)
[2016-07-26] MEDS: NORCO-5 PO PRN ×2 (11:46→21:36)
[2016-07-26] MEDS: DUONEB (A & A) INH SCH ×4 (12:42→23:11)
[2016-07-26] MEDS: SPIRIVA INH SCH (12:42)
--- NOTE | 2016-07-26 15:46 | ECHO REPORT ---
ORDER DATE: 07/26/2016 ECHOCARDIOGRAM: MEASUREMENTS: Left ventricular end-diastolic diameter 4.6, end systolic diameter 3.5, septal thickness 1.2, left atrium 3.7, aortic root 3.6. SUMMARY: 1. Technically difficult study due to limited acoustic window quality. 2. Trileaflet aortic valve demonstrates mild aortic valve sclerosis with adequate aortic valve opening and peak gradient less than 10 mmHg. Mitral, tricuspid and pulmonic valves are without structural abnormality with trace tricuspid regurgitation. Aortic root is normal in size. 3. Normal left ventricular dimensions suggested on 2-D images. Estimated left ventricular ejection fraction appears to be at least 55%. No obvious wall motion abnormality can be appreciated. Doppler suggests grade 1 left ventricular diastolic dysfunction. Doppler suggests pseudonormalization/grade 2 left ventricular diastolic dysfunction. Left atrium is upper normal in size. Right atrium and right ventricle are normal size with normal right ventricular systolic function. 4. No pericardial effusion. 5. Appearance of inferior vena cava suggests normal central venous pressure. CONCLUSIONS: 1. Technically difficult study. 2. Aortic valve sclerosis without stenosis. 3. Estimated left ventricular ejection fraction at least 55%. 4. Grade 2 left ventricular diastolic dysfunction suggested. cc: MD Melissa Terrell CRNP
[2016-07-26] MEDS: XANAX PO SCH (21:23)
[2016-07-27] MEDS: DUONEB (A & A) INH SCH ×6 (03:28→22:45)
[2016-07-27 05:37] LABS: MANUAL DIFF NEEDED? NO
[2016-07-27 05:54] LABS: BASO% 0.2 % (0.0-0.8); EOS# 0.05 X1000 (0.0-0.7); EOS% 0.6 % (0.0-10.0); HEMOGLOBIN 10.2 g/dL (14.0-18.0); IMM GRAN# 0.07 X1000 (0.0-0.04); IMM GRAN% 0.8 % (0.0-0.5); LYMPH# 1.84 X1000 (1.2-3.4); LYMPH% 21.4 % (20.5-51.1); MCH 32.7 PG (27-31); MCHC 30.9 g/dL (33-37); MCV 105.8 FL (81-99); MONO# 1.27 X1000 (0.11-0.59); MONO% 14.8 % (1.7-9.3); MPV 8.7 FL (7.4-10.4); NEUT% 62.2 % (42.2-75.2); PLT 231 X1000 (130-400); RBC 3.12 XMIL (4.7-6.1)
[2016-07-27 06:19] LABS: AGAP 6; BUN 9 mg/dL (8-22); CALCIUM 8.5 mg/dL (8.8-10.2); CHLORIDE 99 mmol/L (98-107); COSMO 270; POTASSIUM 3.9 mmol/L (3.5-5.1); SODIUM 135 mmol/L (136-145); TCO2 30 mmol/L (25-35)
[2016-07-27] MEDS: SPIRIVA INH SCH (07:30)
[2016-07-27] MEDS: BROVANA NEB INH SCH ×2 (07:51→19:38)
[2016-07-27] MEDS: PULMICORT INH SCH ×2 (07:52→19:39)
--- NOTE | 2016-07-27 08:25 | PROGRESS NOTE ---
DATE: 07/27/2016 SUBJECTIVE: Patient notes that he is feeling much better this morning. He is having decreased shortness of breath, decreased work of breathing. Overall is feeling better. The patient otherwise states that he is feeling much better. He is on oxygen normally at home. PHYSICAL EXAMINATION: Vital Signs: Temperature 98, pulse 99, respiratory rate 18, BP 135/66. Saturation 99%. Weight is 178, was 185 on admission. General: Patient is awake, alert, oriented. He is currently in no respiratory distress. He is feeling much better. Neck: Supple. CV: Regular rate. Chest: Relatively clear. Abdomen: Soft. Extremities: Moves all extremities. He has trace edema bilaterally. Skin: Warm, dry. No rashes. ASSESSMENT: 1. Acute congestive heart failure, systolic with exacerbation, improved. We will change him over to oral Lasix. Recheck labs in the morning. If better, hopefully home. We will check lipids in the morning. 2. Hypertension, stable. 3. Hypoxemia, stable, chronic. 4. Hyperlipidemia. PLAN: Change to p.o. Lasix. Hopefully home in the next 1-2 days. cc: Marcelo Almodovar MD
[2016-07-27] MEDS ORDERED: ZETIA PO SCH (09:00)
[2016-07-27] MEDS: LEVAQUIN 500 MG/D5W 500 MG/100 ML IVPB IV SCH (09:44)
[2016-07-27] MEDS: VITAMIN B-12 PO SCH (09:45)
[2016-07-27] MEDS: CLARITIN PO SCH (09:45)
[2016-07-27] MEDS: ASPIRIN EC PO SCH (09:45)
[2016-07-27] MEDS: ELIQUIS PO SCH ×2 (09:45→21:04)
[2016-07-27] MEDS: TOPROL XL PO SCH (09:45)
[2016-07-27] MEDS: ZETIA PO SCH (09:45)
[2016-07-27] MEDS: BENICAR PO SCH (09:45)
[2016-07-27] MEDS: WELLBUTRIN XL PO SCH ×2 (09:45→21:04)
[2016-07-27] MEDS: LASIX PO SCH (09:45)
[2016-07-27] MEDS: ZOCOR PO SCH (09:45)
[2016-07-27] MEDS ORDERED: PRINIVIL PO SCH (19:00)
[2016-07-27] MEDS: NORCO-5 PO PRN (21:04)
[2016-07-27] MEDS: XANAX PO SCH (21:04)
[2016-07-28] MEDS: DUONEB (A & A) INH SCH ×2 (03:40→07:15)
[2016-07-28 06:55] LABS: HEMATOCRIT 34.9 % (42.0-52.0); HEMOGLOBIN 10.7 g/dL (14.0-18.0); MCH 32.2 PG (27-31); MCHC 30.7 g/dL (33-37); MCV 105.1 FL (81-99); MPV 9.4 FL (7.4-10.4); RBC 3.32 XMIL (4.7-6.1)
[2016-07-28 07:07] LABS: AGAP 10; ALBUMIN 3.1 g/dL (3.5-5.0); ALKALINE PHOSPHATASE 42 U/L (32-122); BUN 8 mg/dL (8-22); CALCIUM 8.5 mg/dL (8.8-10.2); CHLORIDE 96 mmol/L (98-107); COSMO 268; GOT 14 U/L (10-34); GPT 13 U/L (10-44); HDL 60 mg/dL (35-55); LDL 40 mg/dL; MAGNESIUM 1.7 mg/dL (1.5-2.7); POTASSIUM 3.6 mmol/L (3.5-5.1); SODIUM 135 mmol/L (136-145); TCO2 29 mmol/L (25-35); TOTAL PROTEIN 5.6 g/dL (6.3-8.3); TRIGLYCERIDES 74 mg/dL (39-160); VLDL 15 mg/dL
[2016-07-28] MEDS: SPIRIVA INH SCH (07:15)
[2016-07-28] MEDS: PULMICORT INH SCH (07:16)
[2016-07-28 07:49] VITALS: BP 140/80
[2016-07-28] MEDS: LEVAQUIN 500 MG/D5W 500 MG/100 ML IVPB IV SCH (09:33)
[2016-07-28] MEDS: ZETIA PO SCH (09:34)
[2016-07-28] MEDS: LASIX PO SCH (09:34)
[2016-07-28] MEDS: BENICAR PO SCH (09:34)
[2016-07-28] MEDS: WELLBUTRIN XL PO SCH (09:34)
[2016-07-28] MEDS: VITAMIN B-12 PO SCH (09:34)
[2016-07-28] MEDS: ZOCOR PO SCH (09:34)
[2016-07-28] MEDS: ASPIRIN EC PO SCH (09:34)
[2016-07-28] MEDS: TOPROL XL PO SCH (09:34)
[2016-07-28] MEDS: ELIQUIS PO SCH (09:34)
[2016-07-28] MEDS: CLARITIN PO SCH (09:34)
--- NOTE | 2016-07-28 11:07 | DISCHARGE SUMMARY ---
ADMISSION DATE: 07/27/2016 DISCHARGE DATE: 07/28/2016 DISCHARGE DIAGNOSES: 1. Acute systolic congestive heart failure exacerbation, improved. 2. Hypertension, improved. Blood pressure is 140/80 on discharge, was 160/100 on admit. 3. Left lower lobe atelectasis, improved. 4. Hyperlipidemia. 5. Depression. 6. Chronic anxiety. 7. Chronic obstructive pulmonary disease. 8. Atrial fibrillation, stable. CONSULTATIONS: None. PROCEDURES: None. BRIEF HOSPITAL COURSE: The patient is a 75-year-old male who was admitted as noted in the HPI, treated in the usual fashion, placed on IV Lasix, and then converted over to oral Lasix. His labs remained stable. On discharge, he is awake, alert. He is in no distress. He was placed on Levaquin as there was some question as to whether he had a left lower lobe infiltrate. This certainly may have only been atelectasis, but regardless, he did improve after placing on antibiotics. DISPOSITION: Thirty eight minutes were spent in discharge planning and instructions. The patient will be discharged home. He will continue his home medications of Eliquis, Xanax, albuterol, Vytorin, Spiriva, and Benicar. He was started on Zocor while in the hospital given his congestive heart failure. He will be also discharged home with a prescription for Lasix. He will follow up with in 1 to 2 weeks, or sooner should symptoms worsen or return. cc: Marcelo Almodovar MD
== END 2016-07-28 11:00 | disposition home or self-care (01) ==
LOC: P.MEDSURG 17:47 → P.ED 17:47 → SUATTDRO 20:33 → P.MEDSURG 20:51
PROVIDERS: ATTEND Family Medicine

== ENCOUNTER 2016-08-24 06:26 | Inpatient (IN) ==
[2016-08-24] MEDS ORDERED: NS 1,000 ML ONE (06:40)
[2016-08-24] MEDS ORDERED: ASPIRIN PO STA (06:46)
--- NOTE | 2016-08-24 07:02 | EKG Report ---
Test Performed on : 08/24/2016 06:55:13 AM Test Reason : CHEST PAIN Blood Pressure : / mmHG Vent. Rate : 104 BPM Atrial Rate : 104 BPM P-R Int : 140 ms QRS Dur : 082 ms QT Int : 296 ms P-R-T Axes : 037 076 031 degrees QTc Int : 389 ms Sinus tachycardia. Otherwise normal ECG When compared with ECG of 25-JUL-2016 20:26, premature ventricular complexes. are no longer present Unconfirmed Result
[2016-08-24 07:05] LABS: BASO% 0.1 % (0.0-0.8); EOS# 0.02 X1000 (0.0-0.7); EOS% 0.2 % (0.0-10.0); HEMOGLOBIN 12.1 g/dL (14.0-18.0); IMM GRAN# 0.02 X1000 (0.0-0.04); IMM GRAN% 0.2 % (0.0-0.5); LYMPH# 0.34 X1000 (1.2-3.4); LYMPH% 4.1 % (20.5-51.1); MANUAL DIFF NEEDED? NO; MCH 31.8 PG (27-31); MCV 102.6 FL (81-99); MONO# 0.57 X1000 (0.11-0.59); MONO% 6.8 % (1.7-9.3); MPV 9.4 FL (7.4-10.4); NEUT% 88.6 % (42.2-75.2); PLT 218 X1000 (130-400)
[2016-08-24 07:24] LABS: ALBUMIN 3.6 g/dL (3.5-5.0); MAGNESIUM 2.4 mg/dL (1.5-2.7); TOTAL BILIRUBIN 0.5 mg/dL (0.20-1.00)
[2016-08-24 07:25] LABS: INR 1.08 (0.86-1.15); PROTIME 14.3 Seconds (12.1-15.5)
[2016-08-24 07:26] LABS: PTT PL 34.6 Seconds (22.6-43.9)
--- NOTE | 2016-08-24 07:59 | Diag Imaging Result Doc PS360 ---
EXAM: CHEST-PORTABLE HISTORY: sob TECHNIQUE: Portable AP COMPARISON: 07/25/2016 FINDINGS: There are dense infiltrates in the mid and lower left lung and in the right base. Sternal wires are present. The heart is not enlarged. Questionable tiny left pleural effusion. IMPRESSION: Bilateral pneumonia. Electronically signed by Horacio Orozco 08/24/2016 7:57 AM
--- NOTE | 2016-08-24 09:09 | EKG Report ---
Test Performed on : 08/24/2016 09:03:25 AM Test Reason : hypotension Blood Pressure : / mmHG Vent. Rate : 100 BPM Atrial Rate : 100 BPM P-R Int : 144 ms QRS Dur : 086 ms QT Int : 312 ms P-R-T Axes : 027 072 047 degrees QTc Int : 402 ms Normal sinus rhythm. Normal ECG When compared with ECG of 24-AUG-2016 06:55, (Unconfirmed) No significant change was found Unconfirmed Result
--- NOTE | 2016-08-24 09:37 | PROVIDER DOCUMENTATION ---
This chart was entered by Ofelia Latif Scribe, acting as scribe for Clinton Storm MD. HPI-Respiratory General - General Chief Complaint: Shortness of Breath Stated Complaint: DYSPNEA, COPD Time Seen by Provider: 08/24/16 06:45 Source: patient Allergies/Adverse Reactions: Patient Allergies Allergy/AdvReac Type Severity Reaction Status Date / Time No Known Allergies Allergy Verified 08/24/16 06:46 Home Medications: Home Medication List Medication Instructions Recorded Confirmed Last Taken Type Alprazolam [Alprazolam] 08/24/16 1 Day Ago History Apixaban [Eliquis] 08/24/16 1 Day Ago History Furosemide [Lasix] 08/24/16 1 Day Ago History Olmesartan Medoxomil [Benicar] 08/24/16 1 Day Ago History Potassium Chloride E.r. [Klor-Con] 08/24/16 08/23/16 History Simvastatin [Simvastatin] 08/24/16 1 Day Ago History - History of Present Illness-Resp Nature of Presenting Problem: 76 yo M presents to the ER with complaint of cough and SOB. Pt has a hx of COPD , wears 3L of O2 at home. Received albulterol via EMS and felt better. Denies any CP or n/v/d. Cough Quality/Degree: reports: moderate Episode Frequency: chronic episodes Current Respiratory Medication Therapy: Initiated other (home O2) Associated Symptoms: reports: cough, shortness of breath, short of breath. denies: chest pain/soreness Review of Systems - Adult - REVIEW OF SYSTEMS - ADULT Constitutional: denies: chills, fever Eyes: reports: no symptoms reported Ears, Nose, Mouth & Throat: reports: no symptoms reported Cardiovascular: denies: chest pain, palpitations Respiratory: reports: cough, shortness of breath. denies: wheezing Gastrointestinal: denies: diarrhea, nausea, vomiting Genitourinary: reports: no symptoms reported Musculoskeletal: reports: no symptoms reported Integumentary: reports: no symptoms reported Neurological: reports: no symptoms reported Psychiatric: reports: no symptoms reported Endocrine: reports: no symptoms reported Hematologic/Lymphatic: reports: no symptoms reported Allergic/Immunologic: reports: no symptoms reported All Other Systems: Reviewed and Negative Past History - Adult - PAST MEDICAL HISTORY-ADULT Review of Records: reports: Nursing Assessment Review, Medications Reviewed Cardiovascular: reports: HTN, hyperlipidemia Respiratory: reports: COPD Neurological: reports: dementia - PRIOR SURGERIES/PROCEDURES Surgical/Procedure History: reports: cardiac stent - IMMUNIZATION STATUS Childhood Immunizations: See Nurse Assessment Flu Vaccine: See Nurse Assessment Physical Exam-General - PHYSICAL EXAM-ADULT Initial Vital Signs Reviewed: Yes - CONSTITUTIONAL General Appearance: alert, no apparent distress - EYES Eyes: PERRL/EOMI, pink conjunctivae - HEAD, EARS, NOSE, MOUTH & THROAT HENMT: normocephalic/atraumatic, normal ENT inspection - NECK Neck: supple, normal inspection - RESPIRATORY Respiratory: rales, other (coarse breath sounds) - CARDIOVASCULAR Cardiovascular: normal peripheral pulses, regular rate, rhythm - MUSCULOSKELETAL Back Exam: no CVA tenderness, no vertebral tenderness Extremity: normal gait, normal inspection - SKIN Integumentary: normal color, diaphoresis - NEUROLOGIC Neurologic: grossly normal, no motor/sensory deficits - PSYCHIATRIC Psych/Mental Status: normal mood/affect, normal thought content, normal thought process, oriented x 3 Progress - PLAN OF CARE/RESULTS Progress/Plan/Lab Results: Vital Signs - 8 hr 08/24/16 06:34 08/24/16 08:32 Temperature 99.5 F 97.1 F L Pulse Rate 108 H 98 H Respiratory Rate 28 H 22 Blood Pressure 75/53 95/59 O2 Sat by Pulse Oximetry 90 L 98 Laboratory Results - last 24 hr 08/24/16 08/24/16 08/24/16 06:55 06:55 06:55 WBC RBC Hgb Hct MCV MCH MCHC RDW Std Deviation Plt Count MPV Immature Gran % (Auto) Neut % (Auto) Lymph % (Auto) [place] % (Auto) Eos % (Auto) Baso % (Auto) Immature Gran # (Auto) Neut # (Auto) Lymph # (Auto) [place] # (Auto) Eos # (Auto) Baso # (Auto) PT INR APTT (Factor Assay) Sodium 135 L Potassium 4.0 Chloride 98 Carbon Dioxide 27 Anion Gap 11 BUN 35 H Creatinine 2.5 H Estimated GFR/1.73 m2 25 BUN/Creatinine Ratio 14 Glucose 181 H Calculated Osmolality 283 Calcium 9.0 Magnesium 2.4 Total Bilirubin 0.50 AST 29 ALT 16 Alkaline Phosphatase 55 Creatine Kinase 99 Troponin T 0.021 Bdi-A-Viqppkzwxuu Pept 483 H Total Protein 6.0 L Albumin 3.6 Globulin 2.0 Albumin/Globulin Ratio 2.0 Plasma Lactate 07/04/17 07/04/17 07/04/17 06:55 06:55 08:31 WBC 8.36 RBC 3.80 L Hgb 12.1 L Hct 39.0 L MCV 102.6 H MCH 31.8 H MCHC 31.0 L RDW Std Deviation 12.8 Plt Count 218 MPV 9.4 Immature Gran % (Auto) 0.2 Neut % (Auto) 88.6 H Lymph % (Auto) 4.1 L [place] % (Auto) 6.8 Eos % (Auto) 0.2 Baso % (Auto) 0.1 Immature Gran # (Auto) 0.02 Neut # (Auto) 7.40 H Lymph # (Auto) 0.34 L [place] # (Auto) 0.57 Eos # (Auto) 0.02 Baso # (Auto) 0.01 PT 14.3 INR 1.08 APTT (Factor Assay) 34.6 Sodium Potassium Chloride Carbon Dioxide Anion Gap BUN Creatinine Estimated GFR/1.73 m2 BUN/Creatinine Ratio Glucose Calculated Osmolality Calcium Magnesium Total Bilirubin AST ALT Alkaline Phosphatase Creatine Kinase Troponin T Bgy-G-Skxlgaevhjd Pept Total Protein Albumin Globulin Albumin/Globulin Ratio Plasma Lactate 2.0 Orders Category Date Time Status Cardiac Monitoring DIRECTED Care 08/24/16 06:46 Active Oxygen Therapy- ED Nursing DIRECTED Care 08/24/16 06:46 Active Saline Loc NOW Care 08/24/16 06:46 Active CHEST-PORTABLE [RAD] Stat Exams 08/24/16 06:47 Completed CBC WITH ELECTRONIC DIFF [HEME] Stat Lab 08/24/16 06:55 Completed CK PROFILE [SP CHEM] Stat Lab 08/24/16 06:55 Completed COMPREHENSIVE METABOLIC PANEL [CHEM] Stat Lab 08/24/16 06:55 Completed LACTATE, PLASMA [CHEM] Stat Lab 08/24/16 08:31 Completed MAGNESIUM [CHEM] Stat Lab 08/24/16 06:55 Completed PRO B-NATRIURETIC PEPTIDE Stat Lab 08/24/16 06:55 Completed PROTIME WITH INR PL [COAG] Stat Lab 08/24/16 06:[address] [COAG] Stat Lab 08/24/16 06:55 Completed TROPONIN T Stat Lab 08/24/16 06:55 Completed 0.9% Sodium Chloride Inj [Ns] 1,000 ml Med 08/24/16 06:40 Discontinued .ROUTE As Directed Aspirin Med 08/24/16 06:46 Discontinued 325 mg PO STAT STA EKG [EKG] Stat Ther 08/24/16 06:46 Draft EKG [EKG] Stat Ther 08/24/16 08:33 Draft Result Diagrams: 08/24/16 06:55 08/24/16 06:55 - EKG 1 Time of EKG reading by physician:: 06:55 EKG Read and Signed by:: Clinton Storm EKG Interpretation (*Must complete 3 of following elements*): Abnormal Rate: 104 Rhythm: sinus tach [place]: normal QRS: normal RI Interval: normal ST Wave: normal - XRAY 1 XRAY Study: Chest Impression: Abnormal (bilat pneumonia, per radiologist) - CONSULTS/PCP/HOSPITALIST Notification #1 *Consult/PCP/Hospitalist*: Dr. Florian Time Discussed: 09:35 Consult Disposition: Admit Departure - Departure Date of Disposition Decision: 08/24/16 Time of Disposition Decision: 09:36 DIAGNOSIS: COPD with exacerbation Disposition: ADMITTED INPATIENT 09 Certified Medical Emergency: Emergent Condition: Stable Referrals and Follow-Ups: Mervin Kulkarni MD [Primary Care Provider] - - Critical Care Note This patient required my direct & personal management of CC.: No Attestation - Physician/ KAYLA Attestation The physician spent face to face time with patient:: Yes Advanced Practice Provider documentation review:: The physician spent face to face time with this patient and agrees with all MLP documentation, treatment, and medical decision making by the MLP. See provider notes for further information. This chart was documented by the indicated scribe, (Ofelia Latif Scribe) and accurately reflects the services I performed and decisions made by Emeterio garay Christophe I, MD, as attested by the provider's signature.
--- NOTE | 2016-08-24 11:00 | Diag Imaging Result Doc PS360 ---
EXAM: CT THORAX W/O CONTRAST HISTORY: pneumonia TECHNIQUE: COMPARISON: 03/04/2016 FINDINGS: No pleural effusions. The left hemidiaphragm is elevated. No cardiomegaly. No thoracic aortic aneurysm. There are small mediastinal lymph nodes. There are multifocal dense infiltrates bilaterally. These have developed since the prior exam. Patient also has emphysema. Sternal wires are present. IMPRESSION: 1.Bilateral multifocal pneumonia 2.Emphysema Electronically signed by Horacio Orozco 08/24/2016 10:58 AM
--- NOTE | 2016-08-24 12:18 | HISTORY AND PHYSICAL ---
PRIMARY CARE PHYSICIAN: Dr. Kulkarni. CHIEF COMPLAINT: Cough and shortness of breath despite home O2 usage. HISTORY OF PRESENTING ILLNESS: This is a 76-year-old male, who presented to [facility] ER with complaints of a cough and worsening shortness of breath despite 3 L of O2 at home. He was noted to have an O2 saturation on 3 L on arrival at 90. He had a blood pressure of 75/53, which is now up to 95/59 after 1000 mL bolus of normal saline. His chest x-ray showed bilateral pneumonia. A chest CT showed bilateral multi focal pneumonia and emphysema, so he is being admitted for further evaluation and treatment. PAST MEDICAL HISTORY: COPD, hypertension, hyperlipidemia and dementia. PAST SURGICAL HISTORY: Cardiac stent. FAMILY HISTORY: Noncontributory. SOCIAL HISTORY: He currently lives with his . He was a pack-a-day smoker for 56 years, but quit approximately 2 years ago. Denies any alcohol or illicit drug use. ALLERGIES: He has no known drug allergies. HOME MEDICATIONS: We will verify his home medications and restart those as appropriate. LABORATORY DATA: Showed a white blood cell count of 8.36, hemoglobin 12.1, hematocrit 39, platelets 218. PT and INR of 14.3 and 1.08. Sodium of 135, potassium 4.0, chloride 98, CO2 27, BUN of 35, creatinine 2.5, glucose 181, magnesium 2.4, creatine kinase of 99, troponin 0.021. ProBNP of 483. Plasma lactate of 2. RADIOLOGIC DATA: Chest x-ray showed bilateral pneumonia. Chest CT showed bilateral multifocal pneumonia and emphysema. EKG showed normal sinus rhythm. REVIEW OF SYSTEMS: He was positive for a productive cough and shortness of breath. Denied any fever, chills, blurred vision, dizziness, abdominal pain, constipation, diarrhea, burning or hurting with urination. PHYSICAL EXAMINATION: VITAL SIGNS: On arrival had a temperature of 99.5 degrees, pulse 108, respirations 28, blood pressure 75/53 satting 90% on 3 L via nasal cannula. Blood pressure is up to 95/59 after a liter bolus of normal saline and now satting 98 on 3 L via nasal cannula. GENERAL: This is a 76-year-old male, who is lying in the bed and answers questions appropriately. HEENT: Normocephalic and atraumatic. Pupils are equal, round, reactive to light. Extraocular movements are intact. Oropharynx and nares are clear. NECK: Supple. LUNGS: With decreased breath sounds to bilateral lower lobes with some mild wheezes and rhonchi noted. Equal lung expansion and chest wall movement. O2 via nasal cannula currently in use. HEART: With regular rate and rhythm. No murmurs, rubs, or gallops. ABDOMEN: Soft, nontender, nondistended. Bowel sounds are present x4 quadrants. EXTREMITIES: No clubbing, cyanosis, or edema. NEUROLOGICAL: The cranial nerves 2-12 are grossly intact. ASSESSMENT: 1. Bilateral pneumonia. 2. An acute chronic obstructive pulmonary disease exacerbation. 3. Hypotension. 4. Acute kidney injury. PLAN: He is being admitted to the medical unit. Placed on telemetry. O2 per protocol. Turn, cough and deep breathe q. 2 hours. Healthy heart diet. Incentive spirometry. Placed on Levaquin 750 mg IV q. 24 hours, Solu-Medrol 60 mg IV q. 8 hours and wean as he improves. Normal saline at 75 mL an hour. Again, he received a 1 L bolus of normal saline in the ER. Recheck a CBC, BMP in the a.m., and place on DuoNebs q. 4 hours. Again, we will identify home medications and restart those as appropriate. Dictated by PAM Mabry for Mert Florian MD cc: PAM Mabry MD John V. Irle, MD
[2016-08-24] MEDS: NS 1,000 ML IV SCH (15:08)
[2016-08-24] MEDS: SOLU-MEDROL IV SCH (15:08)
[2016-08-24] MEDS: DUONEB (A & A) INH SCH ×3 (15:27→23:26)
[2016-08-24] MEDS: ZOSYN 2.25 GM/NS 2.25 GM/50 ML IVPB IV SCH ×2 (15:46→20:54)
[2016-08-24] MEDS: DOXYCYCLINE 100 MG in NS 250 ML IV SCH (17:19)
[2016-08-24 17:35] LABS: UR CREAT RANDOM 151.3 mg/dL (14-26)
[2016-08-24] MEDS ORDERED: XANAX PO PRN (22:16)
[2016-08-25] MEDS: SOLU-MEDROL IV SCH ×3 (00:36→18:29)
[2016-08-25] MEDS: DOXYCYCLINE 100 MG in NS 250 ML IV SCH ×2 (04:48→16:20)
[2016-08-25] MEDS: ZOSYN 2.25 GM/NS 2.25 GM/50 ML IVPB IV SCH ×4 (04:48→20:41)
[2016-08-25] MEDS: NS 1,000 ML IV SCH ×3 (04:48→18:29)
[2016-08-25 06:36] LABS: BASO% 0.1 % (0.0-0.8); HEMATOCRIT 32.8 % (42.0-52.0); HEMOGLOBIN 9.9 g/dL (14.0-18.0); IMM GRAN# 0.02 X1000 (0.0-0.04); IMM GRAN% 0.1 % (0.0-0.5); LYMPH# 0.64 X1000 (1.2-3.4); LYMPH% 4.6 % (20.5-51.1); MANUAL DIFF NEEDED? YES; MCH 31.2 PG (27-31); MCHC 30.2 g/dL (33-37); MCV 103.5 FL (81-99); MONO# 0.49 X1000 (0.11-0.59); MONO% 3.5 % (1.7-9.3); MPV 10.2 FL (7.4-10.4); NEUT% 91.7 % (42.2-75.2); PLT 181 X1000 (130-400); RBC 3.17 XMIL (4.7-6.1)
[2016-08-25 06:47] LABS: CALCIUM 9.2 mg/dL (8.8-10.2); POTASSIUM 4.1 mmol/L (3.5-5.1)
[2016-08-25] MEDS ORDERED: SPIRIVA INH SCH (07:30)
[2016-08-25 07:53] LABS: BANDS 1 % (0-1); LYMPHS 1 % (21-51); MONO 3 % (1-9)
[2016-08-25] MEDS: DUONEB (A & A) INH SCH ×6 (08:24→23:58)
[2016-08-25] MEDS ORDERED: BUPROPION HCL 150 MG PO SCH (09:00)
[2016-08-25 09:21] LABS: URINE CULTURE PL NEEDED? NO
[2016-08-25 09:24] LABS: BILIRUBIN URINE NEGATIVE (NEGATIVE); BLOOD URINE NEGATIVE (NEGATIVE); GLUCOSE URINE NEGATIVE (NEGATIVE); LEUKOCYTES URINE NEGATIVE (NEGATIVE); NITRITE URINE POSITIVE (NEGATIVE); PROTEIN URINE 1+(30 mg/dL) mg/dL (NEGATIVE); UROBILINOGEN URINE 1+(1 mg/dL)
[2016-08-25 09:25] LABS: CLARITY CLEAR (CLEAR); COLOR AMBER
[2016-08-25 09:32] LABS: URINE EPITHELIAL CELLS <10 /HPF (<10); URINE SOURCE CLEAN CATCH; URINE WBC <10 /HPF (<10)
[2016-08-25] MEDS: ELIQUIS PO SCH ×2 (09:33→20:41)
[2016-08-25] MEDS: VITAMIN B-12 SL SCH (09:33)
[2016-08-25] MEDS: LOPRESSOR PO SCH (09:33)
[2016-08-25] MEDS: ASPIRIN EC PO SCH (09:34)
[2016-08-25] MEDS: WELLBUTRIN XL PO SCH (09:34)
--- NOTE | 2016-08-25 11:56 | PROGRESS NOTE ---
DATE: 08/25/2016 SUBJECTIVE: Today, Mr. Odonnell refers to be doing a lot better. Coughing has significantly improved and his shortness of breath has also improved. OBJECTIVELY: Vital Signs: Blood pressure is 107/58, pulse is 98, respirations are 18, temperature is 98.4 degrees. Patient is saturating 97% on 3 L. General Examination: Mr. Odonnell is a 76-year-old, male. He was in bed. He did not seem to be in any distress. HEENT: Mucosa is pink and moist. Anicteric. Acyanotic. Neck: Supple. Chest: Air entry is slightly bilaterally reduced. Chest is barrel shaped. There were no crepitations and no rhonchi. Cardiovascular: Regular rate and rhythm. Abdomen: Soft, nontender. Extremities: No pedal edema. PAINTINGS RESTORER: Patient is awake and alert. Oriented x4. There is no focal neurological deficit. Laboratory Data: WBC is up to 13.89, hemoglobin is 9.9, platelet count of 181, 000. There are 95% of segmented neutrophils on peripheral smear. Chemistry: Sodium is 135, potassium is 4.1, chloride is 99, bicarb is 28, BUN went up to 40 but creatinine is down to 1.7. CURRENT MEDICATIONS: 1. Albuterol. 2. Eliquis 5 mg b.i.d. 3. Aspirin 81 mg daily. 4. Bupropion. 5. Doxycycline 100 mg IV q.12. 6. Prednisone 60 mg IV q.8. 7. Metoprolol. 8. Zosyn at 2.25 g q.6. 9. Normal saline at 75 mL per hour. The patient had a FENa which was less than 1%, consistent with the fact that this is prerenal disease and it seems to have improved with IV fluids. DIAGNOSTIC STUDIES: A CT scan of the lungs which was done yesterday shows bilateral multifocal pneumonia and emphysema. ASSESSMENT: 1. Respiratory distress on presentation secondary to underlying bilateral multifocal pneumonia. 2. Multifocal bilateral pneumonia. I am not quite sure if the patient has been aspirating to be developing this. We will do a formal swallow evaluation on him. 3. Chronic obstructive pulmonary disease exacerbation. 4. Acute kidney injury with a FENa less than 1%, consistent with a prerenal injury. 5. Macrocytosis. We will check on his B12 and folate levels. We are also going to reduce the strength of the steroids to 40 b.i.d., titrating it with anticipation of patient being discharged. The patient also has a history of atrial fibrillation, currently rate controlled. He is on apixaban anticoagulation. cc: Mert Florian MD MTDD
[2016-08-25] MEDS ORDERED: ZOCOR PO SCH (21:00)
[2016-08-26] MEDS ORDERED: TUMS EXTRA STRENGTH PO PRN (02:44)
[2016-08-26] MEDS: DUONEB (A & A) INH SCH ×3 (03:59→11:17)
[2016-08-26] MEDS ORDERED: MAALOX PLUS LIQUID PO PRN (04:11)
[2016-08-26] MEDS: ZOSYN 2.25 GM/NS 2.25 GM/50 ML IVPB IV SCH ×2 (04:37→09:35)
[2016-08-26 05:44] LABS: HEMATOCRIT 32.5 % (42.0-52.0); HEMOGLOBIN 10.1 g/dL (14.0-18.0); IMM GRAN# 0.03 X1000 (0.0-0.04); IMM GRAN% 0.2 % (0.0-0.5); LYMPH% 4.1 % (20.5-51.1); MANUAL DIFF NEEDED? YES; MCH 31.5 PG (27-31); MCHC 31.1 g/dL (33-37); MCV 101.2 FL (81-99); MONO# 0.83 X1000 (0.11-0.59); MONO% 5.7 % (1.7-9.3); MPV 10.4 FL (7.4-10.4); PLT 221 X1000 (130-400); RBC 3.21 XMIL (4.7-6.1)
[2016-08-26 06:01] LABS: CALCIUM 9.1 mg/dL (8.8-10.2); POTASSIUM 3.5 mmol/L (3.5-5.1)
[2016-08-26 06:10] LABS: BANDS 2 % (0-1); LYMPHS 6 % (21-51); MONO 5 % (1-9)
[2016-08-26] MEDS: SOLU-MEDROL IV SCH (06:40)
[2016-08-26] MEDS: DOXYCYCLINE 100 MG in NS 250 ML IV SCH (07:05)
--- NOTE | 2016-08-26 07:07 | Diag Imaging Result Doc PS360 ---
EXAM: CHEST-PORTABLE HISTORY: dyspnea TECHNIQUE: Erect AP portable at 0624 COMMENT: There is improvement in the alveolar opacification in the lingula and both lower lobes present at the time the previous study of 08/24/2016. IMPRESSION: Improved pulmonary edema and/or pneumonia. Electronically signed by Yonny Kuo 08/26/2016 7:04 AM
[2016-08-26] MEDS ORDERED: MILK OF MAGNESIA PO PRN (09:30)
[2016-08-26] MEDS: WELLBUTRIN XL PO SCH (09:35)
[2016-08-26] MEDS: LOPRESSOR PO SCH (09:36)
[2016-08-26] MEDS: ASPIRIN EC PO SCH (09:36)
[2016-08-26] MEDS: VITAMIN B-12 SL SCH (09:36)
[2016-08-26] MEDS: ELIQUIS PO SCH (09:36)
[2016-08-26] MEDS ORDERED: PRILOSEC PO SCH (11:30)
[2016-08-26] MEDS ORDERED: LEVAQUIN PO SCH (12:00)
[2016-08-26 13:29] VITALS: BP 138/70
--- NOTE | 2016-08-26 16:15 | DISCHARGE SUMMARY ---
ADMISSION DATE: 08/24/2016 DISCHARGE DATE: 08/26/2016 DISPOSITION: Home. FOLLOWUP: 1. Dr. Mervin Kulkarni. 2. Dr. Suraj Luu. CONSULTATION DURING THIS ADMISSION: None. INVESTIGATIVE PROCEDURE DONE DURING THIS ADMISSION: None. IMAGING STUDIES OF SIGNIFICANCE: 1. A CT scan of the chest was done on presentation which shows bilateral multifocal pneumonia and emphysema. 2. Subsequent chest x-ray showed improved pulmonary edema and/or pneumonia. ADMISSION DIAGNOSES: 1. Bilateral pneumonia. 2. Acute chronic obstructive pulmonary disease exacerbation. 3. Hypotension. 4. Acute kidney injury. DIAGNOSES AT THE TIME OF DISCHARGE: 1. Enterobacter cloacae multifocal pneumonia. 2. Respiratory distress on presentation, secondary to #1. 3. Chronic obstructive pulmonary disease exacerbation. 4. Acute kidney injury. 5. Microcytosis secondary to folic acid deficiency. 6. Gastroesophageal reflux disease. 7. Constipation. 8. Paroxysmal atrial fibrillation. DISCHARGE MEDICATION: 1. Apixaban 1 tablet 5 mg b.i.d. 2. Albuterol inhaler p.r.n. 3. Bupropion 150 mg daily. 4. Simvastatin 10 mg at bedtime. 5. Metoprolol 50 mg daily. 6. Aspirin 81 mg daily. 7. Spiriva. 8. Doxycycline 100 mg b.i.d. 9. Levofloxacin 500 p.o. daily. 10. Omeprazole 40 mg daily. MEDICATIONS THAT HAVE BEEN WITHHELD: Lasix and Olmesartan have been discontinued for now because of renal insufficiency. PRESENTING COMPLAINT: Cough, shortness of breath. HISTORY OF PRESENTING COMPLAINT: Mr. Odonnell is a 76-year-old male, who has been in and out of hospital recently discharged on oxygen on 07/28/2016. Patient presented this time because of worsening shortness of breath. A CT scan of the lungs did show multifocal pneumonia. Patient was admitted for further medical care. HOSPITAL COURSE: The patient did pretty well. He was started on IV antibiotics for hospital- associated pneumonia which he improved very significantly. He was also found to be dehydrated. Phenyl was done which was less than 1%. The patient was hydrated and creatinine continued to improve. Today it is 1.3 coming from 2.5. Certain medications were withheld including the ARBS and the diuretics, which we think could also potentially be contributing to the renal failure. Today his breathing is a lot better. He is on 2 L of oxygen saturating in the high 90s. Subsequent chest x-ray reveals remarkable improvement, so we are going to discharge the patient home to follow up with his primary care doctor. Now of note, because of the multifocal nature of the pneumonia we are concerned that patient probably has some aspiration accompanying. Swallow evaluation was done. However, patient did well but has some cough. He also refers to be having some mild difficulty swallowing. We interpreted this to be some underlying dysphagia, so we recommend that he follows up with Dr. Luu for GI complete evaluation. At the time of discharge, there is not any pending labs or imaging studies. TIME SPENT FOR DISCHARGE: 37 minutes. ACTIVITY: Activity as tolerated. FOLLOW UP: Follow up will be with PCP and GI doctor, Dr. Luu. cc: Mert Florian MD
[2016-08-26] MEDS ORDERED: FOLIC ACID PO SCH (21:00)
[2016-08-26] MEDS ORDERED: DOXYCYCLINE PO SCH (21:00)
== END 2016-08-26 14:05 | disposition home or self-care (01) ==
LOC: P.ED 06:26 → P.MEDSURG 12:07
PROVIDERS: ATTEND Internal Medicine

== ENCOUNTER 2016-08-28 08:05 | Inpatient (IN) ==
--- NOTE | 2016-08-28 08:24 | PROVIDER DOCUMENTATION ---
HPI-Respiratory General - General Chief Complaint: Shortness of Breath Stated Complaint: SOB/COPD Time Seen by Provider: 08/28/16 08:18 Source: patient Allergies/Adverse Reactions: Patient Allergies Allergy/AdvReac Type Severity Reaction Status Date / Time No Known Allergies Allergy Verified 08/24/16 06:46 Home Medications: Home Medication List Medication Instructions Recorded Confirmed Last Taken Type Albuterol Sulfate [Proair Hfa] 1 puff INH DIRECTED 08/24/16 08/24/16 Unknown History Alprazolam 1 tab PO DIRECTED PRN 08/24/16 08/24/16 Unknown History Apixaban [Eliquis] 1 tab PO BID 08/24/16 08/24/16 Unknown History Arformoterol Neb [Brovana Neb] 15 microgm INH RTQ12H 08/24/16 08/24/16 Unknown History Aspirin EC 81 mg PO DAILY 08/24/16 08/24/16 Unknown History Budesonide [Pulmicort] 0.25 mg IH BID 08/24/16 08/24/16 Unknown History Bupropion HCl [Bupropion HCl ER] 150 mg PO DAILY 08/24/16 08/24/16 Unknown History Loratadine [Claritin] 10 mg PO DAILY 08/24/16 08/24/16 Unknown History Metoprolol [Lopressor] 50 mg PO DAILY 08/24/16 08/24/16 Unknown History Mometasone Furoate 220 Mcg INH 1 puff INH RTBID 08/24/16 08/24/16 Unknown History [Asmanex 220 Microgm Inhaler] SIMVAstatin [Zocor] 10 mg PO QHS 08/24/16 08/24/16 Unknown History Tiotropium [place] Inhaler 1 puff INH DAILY 08/24/16 08/24/16 Unknown History [Spiriva] Doxycycline 100 mg PO BID #20 tablet 08/26/16 Unknown Rx Levofloxacin [Levaquin] 500 mg PO DAILY #7 tablet 08/26/16 Unknown Rx Omeprazole [Prilosec] 20 mg PO DAILY@0700 #30 capsule 08/26/16 Unknown Rx - History of Present Illness-Resp Nature of Presenting Problem: copd chf hbp s/p cabg no t2dm hbp hospitalized earlier this week o2 dependent 2days out w/o lasix was not swollen going into hospital some kidney Quality of Pain: reports: none Severity in ED: reports: moderate Onset/Duration: reports: this morning Timing: reports: improving Exposure: reports: unknown cause Cough Quality/Degree: reports: moderate, productive cough Episode Frequency: chronic episodes Current Respiratory Medication Therapy: Initiated albuterol/atrovent inhale, Initiated A/A nebulizer, Initiated prednisone, Initiated albuterol Modifying Factors: improves with: albuterol nebulizer, oxygen, sitting upright. worse with: exertion, coughing, lying down Associated Symptoms: reports: cough, shortness of breath. denies: earache, fever/chills, nasal congestion, nasal drainage, sore throat Similar Symptoms Previously?: Yes Recently seen or treated by another doctor?: Yes Review of Systems - Adult - REVIEW OF SYSTEMS - ADULT Constitutional: denies: chills, fever Eyes: reports: no symptoms reported Ears, Nose, Mouth & Throat: denies: epistaxis, sinus problem, hoarseness Cardiovascular: reports: edema, orthopnea, PND. denies: chest pain, syncope Respiratory: reports: cough, dyspnea on exertion, shortness of breath, wheezing . denies: hemoptysis Gastrointestinal: reports: constipation. denies: hematemesis, diarrhea, nausea , vomiting Genitourinary: reports: no symptoms reported Musculoskeletal: reports: no symptoms reported Integumentary: reports: no symptoms reported Neurological: reports: no symptoms reported. denies: seizure, syncope Endocrine: reports: no symptoms reported Hematologic/Lymphatic: reports: easy bruising. denies: blood clots Allergic/Immunologic: reports: no symptoms reported Past History - Adult - PAST MEDICAL HISTORY-ADULT Review of Records: reports: Nursing Assessment Review, Medications Reviewed, Social history reviewed & non-contributory. Major Childhood Illnesses: reports: denies history Cardiovascular: reports: HTN, hyperlipidemia Respiratory: reports: COPD Gastrointestinal: reports: denies history Obstetrical/Gynecological: reports: denies history Genitourinary: reports: denies history Musculoskeletal: reports: denies history Neurological: reports: dementia Endocrine/Immune: reports: denies history Other Conditions: reports: denies history - PRIOR SURGERIES/PROCEDURES Surgical/Procedure History: reports: cardiac stent - IMMUNIZATION STATUS Childhood Immunizations: See Nurse Assessment Flu Vaccine: See Nurse Assessment - FAMILY HISTORY Family History: reviewed, not pertinent Physical Exam-General - PHYSICAL EXAM-ADULT Initial Vital Signs Reviewed: Yes - CONSTITUTIONAL General Appearance: mild distress - EYES Eyes: PERRL/EOMI, pink conjunctivae - HEAD, EARS, NOSE, MOUTH & THROAT HENMT: normocephalic/atraumatic, moist mucous membranes, normal ENT inspection, TMs normal, pharynx normal - NECK Neck: full range of motion, supple - RESPIRATORY Respiratory: respiratory distress, decreased breath sounds, rhonchi, wheezing, increased rate - CARDIOVASCULAR Cardiovascular: irregularly irregular - GASTROINTESTINAL (ABDOMEN) Abdominal Exam: soft - LYMPHATIC Lymphatic: no adenopathy - MUSCULOSKELETAL Back Exam: normal inspection Extremity: pedal edema - SKIN Integumentary: normal color, normal turgor - NEUROLOGIC Neurologic: grossly normal - PSYCHIATRIC Psych/Mental Status: normal mood/affect Progress - PLAN OF CARE/RESULTS Progress/Plan/Lab Results: Vital Signs - 8 hr 08/28/16 08:10 08/28/16 08:43 08/28/16 10:30 Temperature 97.7 F Pulse Rate 92 H 88 96 H Respiratory Rate 28 H 23 20 Blood Pressure 150/93 127/90 132/88 O2 Sat by Pulse Oximetry 98 98 99 Laboratory Results - last 24 hr 08/28/16 08/28/16 08/28/16 08:16 08:20 08:20 WBC RBC Hgb Hct MCV MCH MCHC RDW Std Deviation Plt Count MPV Immature Gran % (Auto) Neut % (Auto) Lymph % (Auto) [place] % (Auto) Eos % (Auto) Baso % (Auto) Immature Gran # (Auto) Neut # (Auto) Lymph # (Auto) [place] # (Auto) Eos # (Auto) Baso # (Auto) PT INR APTT (Factor Assay) Specimen Type ARTERIAL Sample Site R RADIAL pH 7.44 pCO2 38 pO2 82 HCO3 26.2 H Base Excess 1.6 Oxyhemoglobin 95.5 ABG O2 Sat (Calculated) 14.6 L ABG O2 Saturation 98.3 ABG Carboxyhemoglobin 1.80 ABG Methemoglobin 1.1 Cade Test YES A-a O2 Difference 99.0 Total Hemoglobin 10.8 L Lactate 1.50 Liter Flow 3.0 Blood Gas Modality CANNULA FiO2 % 32.0 Sodium 135 L Potassium 4.3 Chloride 101 Carbon Dioxide 25 Anion Gap 9 BUN 21 Creatinine 1.0 Estimated GFR/1.73 m2 > 60 BUN/Creatinine Ratio 21 Glucose 117 H Calculated Osmolality 274 Calcium 8.7 L Magnesium 1.5 Total Bilirubin 0.20 AST 18 ALT 20 Alkaline Phosphatase 41 Creatine Kinase 52 Troponin T Bpb-[id number]-Nhkqfyarlzs Pept Total Protein 6.1 L Albumin 3.4 L Globulin 3.0 Albumin/Globulin Ratio 1.0 Plasma Lactate 2.1 08/28/16 08/28/16 08/28/16 08:20 08:20 08:20 WBC 10.49 RBC 3.53 L Hgb 11.3 L Hct 36.0 L MCV 102.0 H MCH 32.0 H MCHC 31.4 L RDW Std Deviation 12.4 Plt Count 225 MPV 9.5 Immature Gran % (Auto) 0.7 H Neut % (Auto) 87.9 H Lymph % (Auto) 6.0 L [place] % (Auto) 5.1 Eos % (Auto) 0.2 Baso % (Auto) 0.1 Immature Gran # (Auto) 0.07 H Neut # (Auto) 9.22 H Lymph # (Auto) 0.63 L [place] # (Auto) 0.54 Eos # (Auto) 0.02 Baso # (Auto) 0.01 PT INR APTT (Factor Assay) Specimen Type Sample Site pH pCO2 pO2 HCO3 Base Excess Oxyhemoglobin ABG O2 Sat (Calculated) ABG O2 Saturation ABG Carboxyhemoglobin ABG Methemoglobin Cade Test A-a O2 Difference Total Hemoglobin Lactate Liter Flow Blood Gas Modality FiO2 % Sodium Potassium Chloride Carbon Dioxide Anion Gap BUN Creatinine Estimated GFR/1.73 m2 BUN/Creatinine Ratio Glucose Calculated Osmolality Calcium Magnesium Total Bilirubin AST ALT Alkaline Phosphatase Creatine Kinase Troponin T < 0.010 Dqh-[id number]-Rhenhuqvrai Pept 4300 H Total Protein Albumin Globulin Albumin/Globulin Ratio Plasma Lactate 08/28/16 08:20 WBC RBC Hgb Hct MCV MCH MCHC RDW Std Deviation Plt Count MPV Immature Gran % (Auto) Neut % (Auto) Lymph % (Auto) [place] % (Auto) Eos % (Auto) Baso % (Auto) Immature Gran # (Auto) Neut # (Auto) Lymph # (Auto) [place] # (Auto) Eos # (Auto) Baso # (Auto) PT 14.1 INR 1.06 APTT (Factor Assay) 35.6 Specimen Type Sample Site pH pCO2 pO2 HCO3 Base Excess Oxyhemoglobin ABG O2 Sat (Calculated) ABG O2 Saturation ABG Carboxyhemoglobin ABG Methemoglobin Cade Test A-a O2 Difference Total Hemoglobin Lactate Liter Flow Blood Gas Modality FiO2 % Sodium Potassium Chloride Carbon Dioxide Anion Gap BUN Creatinine Estimated GFR/1.73 m2 BUN/Creatinine Ratio Glucose Calculated Osmolality Calcium Magnesium Total Bilirubin AST ALT Alkaline Phosphatase Creatine Kinase Troponin T Pqm-E-Pscqtdbdewh Pept Total Protein Albumin Globulin Albumin/Globulin Ratio Plasma Lactate Orders Category Date Time Status Cardiac Monitoring DIRECTED Care 08/28/16 08:09 Active Oxygen Therapy- ED Nursing DIRECTED Care 08/28/16 08:09 Active Saline Loc NOW Care 08/28/16 08:09 Active CHEST-2 VIEWS [RAD] Stat Exams 08/28/16 08:09 Completed ABG [RESP] Routine Lab 08/28/16 08:16 Completed CBC WITH ELECTRONIC DIFF [HEME] Stat Lab 08/28/16 08:20 Completed CK PROFILE [SP CHEM] Stat Lab 08/28/16 08:20 Completed COMPREHENSIVE METABOLIC PANEL [CHEM] Stat Lab 08/28/16 08:20 Completed LACTATE, PLASMA [CHEM] Stat Lab 08/28/16 08:20 Completed MAGNESIUM [CHEM] Stat Lab 08/28/16 08:20 Completed PRO B-NATRIURETIC PEPTIDE Stat Lab 08/28/16 08:20 Completed [address]IME WITH INR PL [COAG] Stat Lab 08/28/16 08:[address] [COAG] Stat Lab 08/28/16 08:20 Completed TROPONIN T Stat Lab 08/28/16 08:20 Completed EKG [EKG] Stat Ther 08/28/16 08:20 Draft Transfer/Admit Order [TRANSFER] Routine Transfer 08/28/16 11:19 Ordered Result Diagrams: 08/28/16 08:20 08/28/16 08:20 - EKG 1 Time of EKG reading by physician:: 08:20 EKG Read and Signed by:: Niko Robles EKG Interpretation (*Must complete 3 of following elements*): Abnormal Rate: 96 Rhythm: atrial fibrillation [place]: normal QRS: normal MD Interval: normal ST Wave: normal - XRAY 1 XRAY Study: Chest Impression: See EMR Report (Cardiomegaly, persistant RLL infiltrate, improved overall compared to previous. per Dr. Robles) - CONSULTS/PCP/HOSPITALIST Notification #1 *Consult/PCP/Hospitalist*: Dr. Boswell Departure - Departure Date of Disposition Decision: 08/28/16 Time of Disposition Decision: 11:21 DIAGNOSIS: COPD with exacerbation CHF (congestive heart failure) Qualifiers: Congestive heart failure type: unspecified congestive heart failure type Congestive heart failure chronicity: unspecified congestive heart failure chronicity Qualified Code(s): I50.9 - Heart failure, unspecified Disposition: ADMITTED INPATIENT 09 Certified Medical Emergency: Emergent Condition: Stable Referrals and Follow-Ups: Mervin Kulkarni MD [Primary Care Provider] - - Critical Care Note This patient required my direct & personal management of CC.: No
[2016-08-28 08:31] LABS: BASO% 0.1 % (0.0-0.8); EOS# 0.02 X1000 (0.0-0.7); EOS% 0.2 % (0.0-10.0); HEMOGLOBIN 11.3 g/dL (14.0-18.0); IMM GRAN# 0.07 X1000 (0.0-0.04); IMM GRAN% 0.7 % (0.0-0.5); LYMPH# 0.63 X1000 (1.2-3.4); MANUAL DIFF NEEDED? NO; MCHC 31.4 g/dL (33-37); MONO# 0.54 X1000 (0.11-0.59); MONO% 5.1 % (1.7-9.3); MPV 9.5 FL (7.4-10.4); NEUT% 87.9 % (42.2-75.2); PLT 225 X1000 (130-400); RBC 3.53 XMIL (4.7-6.1)
[2016-08-28 08:38] LABS: BE 1.6 mmoll (-3.0-3.0); BLOOD TYPE ARTERIAL; DRAW SITE R RADIAL; METHB 1.1 % (0.0-1.5); O2(CT) 14.6 mL/dL (15.0-23.0); PCO2(98.6) 38 mmHg (35-45); PO2(98.6) 82 mmHg (60-100); SAMPLE BLOOD; SAO2 98.3 % (95.0-100.0); THB 10.8 g/dL (11.5-17.4); pH(98.6) 7.44 (7.35-7.45)
[2016-08-28 08:42] LABS: INR 1.06 (0.86-1.15); PROTIME 14.1 Seconds (12.1-15.5)
[2016-08-28 08:43] LABS: PTT PL 35.6 Seconds (22.6-43.9)
[2016-08-28 08:45] LABS: AGAP 9; ALBUMIN 3.4 g/dL (3.5-5.0); ALKALINE PHOSPHATASE 41 U/L (32-122); BUN 21 mg/dL (8-22); CALCIUM 8.7 mg/dL (8.8-10.2); CHLORIDE 101 mmol/L (98-107); CK PROFILE 52 U/L (24-204); COSMO 274; GOT 18 U/L (10-34); GPT 20 U/L (10-44); MAGNESIUM 1.5 mg/dL (1.5-2.7); POTASSIUM 4.3 mmol/L (3.5-5.1); SODIUM 135 mmol/L (136-145); TCO2 25 mmol/L (25-35); TOTAL PROTEIN 6.1 g/dL (6.3-8.3)
[2016-08-28 08:48] LABS: MODALITY CANNULA
[2016-08-28 08:49] LABS: ALLEN TEST YES
--- NOTE | 2016-08-28 09:24 | Diag Imaging Result Doc PS360 ---
EXAM: CHEST-2 VIEWS HISTORY: sob TECHNIQUE: COMPARISON: 08/26/2016 FINDINGS: Sternal wires are present. The left hemidiaphragm is elevated. Mild increased interstitial markings bilaterally. The heart is not enlarged. There is a small left pleural effusion. Increased AP diameter to the chest. There has been very little change considering the differences in technique. IMPRESSION: No interval improvement. Electronically signed by Horacio Orozco 08/28/2016 9:21 AM
--- NOTE | 2016-08-28 09:57 | EKG Report ---
Test Performed on : 08/28/2016 08:20:48 AM Test Reason : er Blood Pressure : / mmHG Vent. Rate : 096 BPM Atrial Rate : 094 BPM P-R Int : 000 ms QRS Dur : 080 ms QT Int : 328 ms P-R-T Axes : 000 037 012 degrees QTc Int : 414 ms Atrial fibrillation. Abnormal ECG When compared with ECG of 24-AUG-2016 09:03, Atrial fibrillation. has replaced Sinus rhythm. Unconfirmed Result
[2016-08-28] MEDS ORDERED: ZOFRAN IV PRN (12:48)
--- NOTE | 2016-08-28 14:13 | HISTORY AND PHYSICAL ---
PRIMARY CARE PHYSICIAN: Dr. Kulkarni. CHIEF COMPLAINT: Shortness of breath. HISTORY OF PRESENT ILLNESS: Mr. Odonnell is a 76-year-old male who presented to the emergency room with complaints of increasing shortness of breath with mild exertion. He was recently discharged from our facility after being treated for pneumonia, which he reports has gotten some better, but with this he had an acute kidney injury with his admission and his Lasix was discontinued on discharge. With his history of grade 2 diastolic dysfunction he reports that after being discharged on he began to get very short of breath last night, and noticed increasing swelling to his lower legs and again dyspnea with mild exertion. His proBNP has gone from the 400s to the 4000s from his previous admission to this admission. Therefore he will be admitted for further evaluation and treatment for diuresis and observation. PAST MEDICAL HISTORY: 1. COPD. 2. Hypertension. 3. Hyperlipidemia. 4. Dementia. 5. Grade 2 diastolic dysfunction. PAST SURGICAL HISTORY: Cardiac stent. FAMILY HISTORY: Noncontributory. SOCIAL HISTORY: Patient lives with his . He is a former smoker, he quit approximately 2 years ago. He denies any alcohol or drug use. ALLERGIES: No known drug allergies. MEDICATIONS: Pending reconciliation. REVIEW OF SYSTEMS: Negative 10-point review of systems other than previously stated in HPI. DIAGNOSTIC DATA: The patient did have an echo recently, July 2016, which showed aortic valve sclerosis without stenosis and left ventricular ejection fraction of at least 55%, but did show grade 2 left ventricle diastolic dysfunction. With today's visit his labs: White count 10.49, hemoglobin and hematocrit 11.3 and 36, platelets 225,000, PT 14.1, INR 1.06, PTT 35.6. Blood gas; pH 7.44, pCO2 38, PO2 82, bicarb 26.2, oxyhemoglobin 95.5. BMP; sodium 135, potassium 4.3, chloride 101, CO2 25, BUN 21, creatinine 1, glucose 117, magnesium 1.5. LFTs within normal limits. CPK 52, troponin less than 0.010, proBNP was 4300, again previously on admission several days ago it was 483. Chest x-ray shows a small left pleural effusion but no other infiltrate noted. PHYSICAL EXAM: VITAL SIGNS: Temperature 97.7 degrees, pulse 96, respirations 20, blood pressure 132/88, O2 saturation of 99% on 3 L per nasal cannula. HEENT: Normocephalic, atraumatic. Mucous membranes moist. NECK: Supple. No JVD. CHEST: Bilateral breath sounds with crackles in the bases. No accessory muscle use noted. Respirations unlabored. CARDIOVASCULAR: Normal S1, S2. ABDOMEN: Abdomen is soft, nontender, nondistended. Positive bowel sounds. EXTREMITIES: 1+ pitting edema noted. NEUROLOGIC: Patient is alert and oriented x4. No neurological deficits noted. ASSESSMENT AND PLAN: 1. Acute on chronic diastolic heart failure. Will admit with daily weight, strict I and O, and IV Lasix to help with diuresis. This is likely due to discontinuation of his Lasix from recent discharge. We will be sure to continue this on discharge. 2. Hypertension. We will continue to follow and continue his home medications. 3. Dyspnea secondary to #1. We will diurese and also provide supportive care with oxygen and continue to follow. 4. Edema. We will give Lasix which should help with this. 5. Further orders pending physician evaluation. Dictated by PAM Lynne for Darell Lee MD cc: PAM Lynne MD
[2016-08-28] MEDS: LASIX IV SCH (14:52)
[2016-08-28] MEDS ORDERED: XANAX PO PRN (22:21)
[2016-08-28] MEDS ORDERED: DUONEB (A & A) INH PRN (22:23)
[2016-08-28] MEDS: DUONEB (A & A) INH SCH (22:54)
[2016-08-28] MEDS: DOXYCYCLINE PO SCH (23:33)
[2016-08-28] MEDS: ZOCOR PO SCH (23:35)
[2016-08-28] MEDS: ELIQUIS PO SCH (23:35)
[2016-08-29] MEDS: LEVAQUIN PO SCH ×2 (00:09→21:42)
[2016-08-29] MEDS: LASIX IV SCH (01:33)
[2016-08-29] MEDS: DUONEB (A & A) INH SCH ×6 (03:18→23:20)
[2016-08-29 06:25] LABS: MANUAL DIFF NEEDED? NO
[2016-08-29] MEDS: PRILOSEC PO SCH (06:36)
[2016-08-29 06:41] LABS: BASO% 0.1 % (0.0-0.8); EOS# 0.11 X1000 (0.0-0.7); HEMATOCRIT 34.9 % (42.0-52.0); HEMOGLOBIN 10.9 g/dL (14.0-18.0); IMM GRAN# 0.26 X1000 (0.0-0.04); IMM GRAN% 2.4 % (0.0-0.5); LYMPH# 1.55 X1000 (1.2-3.4); LYMPH% 14.3 % (20.5-51.1); MCH 31.3 PG (27-31); MCHC 31.2 g/dL (33-37); MCV 100.3 FL (81-99); MONO# 1.31 X1000 (0.11-0.59); MONO% 12.1 % (1.7-9.3); MPV 10.3 FL (7.4-10.4); NEUT% 70.1 % (42.2-75.2); PLT 244 X1000 (130-400); RBC 3.48 XMIL (4.7-6.1)
[2016-08-29 06:59] LABS: AGAP 11; BUN 22 mg/dL (8-22); CALCIUM 8.8 mg/dL (8.8-10.2); CHLORIDE 99 mmol/L (98-107); COSMO 281; POTASSIUM 3.5 mmol/L (3.5-5.1); SODIUM 139 mmol/L (136-145); TCO2 29 mmol/L (25-35)
[2016-08-29] MEDS: ASPIRIN EC PO SCH (08:37)
[2016-08-29] MEDS: DOXYCYCLINE PO SCH ×2 (08:37→21:42)
[2016-08-29] MEDS: WELLBUTRIN XL PO SCH (08:37)
[2016-08-29] MEDS: CLARITIN PO SCH (08:37)
[2016-08-29] MEDS: ELIQUIS PO SCH ×2 (08:37→21:42)
[2016-08-29] MEDS: LOPRESSOR PO SCH (08:37)
--- NOTE | 2016-08-29 10:16 | PROGRESS NOTE ---
DATE: 08/29/2016 SUBJECTIVE: This patient states that he is feeling much better. He is not complaining of shortness of breath today. No chest pain, no nausea, no vomiting, no diarrhea, no constipation. OBJECTIVE: Vital Signs: Temperature 97.9 degrees, pulse 91, respiratory rate 18, blood pressure 148/60, oxygen saturation 96 on 3 L of nasal cannula. HEENT: Head normocephalic. No trauma. PERRLA. Neck: Supple. Mild JVD. No masses. Central trachea. Chest: Decreased breath sounds globally. Clear to auscultation. Mild rales at the bases. Abdomen: Soft, nontender, nondistended. No hepatosplenomegaly. Extremities: There is 1+ pitting edema. Neurological Examination: The patient is alert and oriented x4. No focal deficits. Laboratory: WBC 10.8, hemoglobin 10.9, hematocrit 34.9, platelets 244,000. Sodium 139, potassium 3.5, chloride 99, bicarbonate 29, BUN 22, creatinine 1, glucose 92, calcium 8.8. ASSESSMENT AND PLAN: 1. Acute on chronic diastolic heart failure. I will decrease the dose of furosemide today. I will continue with strict ins and outs. He feels much better. Probably tomorrow, this patient can be discharged home. 2. Hypertension. Continue with the same management. 3. Hyperlipidemia. Continue with the same treatment. 4. History of chronic obstructive pulmonary disease, not in exacerbation. We will continue with the same management. 5. Anxiety. Continue with Xanax as needed. 6. This patient was admitted yesterday secondary to a congestive heart failure exacerbation. I started this patient on Lasix IV q.12 hours. Today, he feels much better. His balance is negative around 2760. I will decrease the dose of furosemide from 40 IV twice a day to daily. Tomorrow hopefully, this patient can be discharged home if it the patient is doing fine. cc: Darell Lee MD
[2016-08-29] MEDS: ZOCOR PO SCH (21:42)
[2016-08-30] MEDS: DUONEB (A & A) INH SCH ×2 (02:53→11:01)
[2016-08-30 05:42] VITALS: BP 154/77
[2016-08-30] MEDS: PRILOSEC PO SCH (06:37)
[2016-08-30 06:50] LABS: MANUAL DIFF NEEDED? NO
[2016-08-30 06:53] LABS: BASO% 0.1 % (0.0-0.8); EOS# 0.27 X1000 (0.0-0.7); EOS% 2.5 % (0.0-10.0); HEMOGLOBIN 10.5 g/dL (14.0-18.0); IMM GRAN% 2.8 % (0.0-0.5); LYMPH# 1.84 X1000 (1.2-3.4); LYMPH% 16.9 % (20.5-51.1); MCH 31.2 PG (27-31); MCHC 30.9 g/dL (33-37); MCV 100.9 FL (81-99); MONO% 10.1 % (1.7-9.3); MPV 9.9 FL (7.4-10.4); NEUT% 67.6 % (42.2-75.2); PLT 254 X1000 (130-400); RBC 3.37 XMIL (4.7-6.1)
[2016-08-30 07:51] LABS: AGAP 10; BUN 19 mg/dL (8-22); CALCIUM 8.4 mg/dL (8.8-10.2); CHLORIDE 100 mmol/L (98-107); COSMO 277; POTASSIUM 3.4 mmol/L (3.5-5.1); SODIUM 137 mmol/L (136-145); TCO2 27 mmol/L (25-35)
[2016-08-30] MEDS ORDERED: LASIX IV SCH (09:00)
[2016-08-30] MEDS ORDERED: LASIX PO SCH (09:00)
[2016-08-30] MEDS: WELLBUTRIN XL PO SCH (09:50)
[2016-08-30] MEDS: DOXYCYCLINE PO SCH (09:50)
[2016-08-30] MEDS: LOPRESSOR PO SCH (09:50)
[2016-08-30] MEDS: ELIQUIS PO SCH (09:50)
[2016-08-30] MEDS: CLARITIN PO SCH (09:50)
[2016-08-30] MEDS: ASPIRIN EC PO SCH (09:50)
--- NOTE | 2016-08-31 09:37 | DISCHARGE SUMMARY ---
ADMISSION DATE: 08/29/2016 DISCHARGE DATE: 08/30/2016 DIAGNOSES: 1. Acute on chronic diastolic heart failure. 2. Hypertension. 3. Hyperlipidemia. 4. History of chronic obstructive pulmonary disease, not in exacerbation. 5. Anxiety. DIAGNOSTICS: On 08/28/2016 chest x-ray revealed left hemidiaphragm elevated with mild increased interstitial markings bilaterally. The heart is not enlarged. Increased AP diameter to the chest. DISCHARGE MEDICATIONS: 1. ProAir inhaler 1 puff as directed. 2. Brovana nebulizer 15 mcg every 12 hours. 3. Eliquis 5 mg b.i.d. 4. Alprazolam 1 mg as directed. 5. Doxycycline 100 mg b.i.d. as directed. 6. Wellbutrin ER 150 mg daily. 7. Pulmicort 0.25 inhaled b.i.d. 8. Enteric-coated aspirin 81 mg daily. 9. Lopressor 50 mg daily. 10. Claritin 10 mg daily. 11. Levaquin 500 mg daily for 10 days. 12. Asmanex 220 mcg inhaler 1 puff twice a day. 13. Zocor 10 mg at bedtime. 14. Prilosec 20 mg p.o. daily. 15. Spiriva 1 puff daily. 16. Lasix 40 mg daily. HOSPITAL COURSE: Mr. Odonnell presented to the emergency room complaining of shortness of breath. He was found to be in acute diastolic failure. He was admitted, watched on telemetry. We did diurese him for it looks like 2500 mL negative. He was transitioned over to p.o. Lasix yesterday and he has tolerated this well. Thankfully he has improved and is ready to be discharged. PHYSICAL EXAMINATION: HEENT: Head is normocephalic, atraumatic. Pupils equal, round, react to light. EOMs are intact. Sclerae anicteric. Mucous membranes are moist. Neck: Supple. Trachea midline. Cardiovascular: Regular rate and rhythm. S1 and S2 appreciated. Pulmonary: Breath sounds are clear, diminished, with no increased work of breathing noted. Gastrointestinal: Abdomen is soft, nontender, nondistended with bowel sounds in all 4 quadrants. Extremities: He has 1+ edema to his left ankle which he states is chronic. Right lower extremity and upper extremities have no edema. Neurologic: He is alert and oriented x3. DISCHARGE FOLLOWUP: He needs to see Dr. Kulkarni in the next 1-2 weeks. At that time he needs to have a BMP drawn to assess his electrolytes and kidney function and further use of Lasix can be discussed. DISCHARGE ACTIVITY: As tolerated. He is to continue his home O2 as well as his home nebs. The patient has been given a prescription for Levaquin as well as Lasix. He was given doxycycline prior to coming to the emergency room. All other prescriptions will require refills per the prescribing physician. He is being discharged home in stable condition with family members. Dictated by PAM Dugan for Marcelo Almodovar MD cc: PAM Dugan MD
== END 2016-08-30 12:30 | disposition home health service (06) ==
LOC: P.MEDSURG 08:05 → P.ED 08:05 → SUATTDRO 08-29 09:06
PROVIDERS: ATTEND Family Medicine

== ENCOUNTER 2016-10-14 20:18 | Observation (INO) ==
[2016-10-14] MEDS ORDERED: ASPIRIN PO STA (22:02)
[2016-10-14] MEDS ORDERED: G.I. COCKTAIL PO ONE (22:04)
--- NOTE | 2016-10-14 22:04 | PROVIDER DOCUMENTATION ---
This chart was entered by Kathleen Casanova Scribe, acting as scribe for Jay Martin MD. HPI-General Adult - General Chief Complaint: Nausea/Vomiting Stated Complaint: NAUSEA/VOMITING Time Seen by Provider: 10/14/16 21:47 Source: patient Allergies/Adverse Reactions: Patient Allergies Allergy/AdvReac Type Severity Reaction Status Date / Time No Known Allergies Allergy Verified 08/24/16 06:46 Home Medications: Home Medication List Medication Instructions Recorded Confirmed Last Taken Type Albuterol Sulfate [Proair Hfa] 1 puff INH DIRECTED 08/24/16 08/28/16 13:00 History Alprazolam 1 tab PO DIRECTED PRN 08/24/16 08/28/16 08/27/16 21:30 History Apixaban [Eliquis] 1 tab PO BID 08/24/16 08/28/16 08/27/16 18:00 History Arformoterol Neb [Brovana Neb] 15 microgm INH RTQ12H 08/24/16 08/28/16 08/27/16 09:00 History Aspirin EC 81 mg PO DAILY 08/24/16 08/28/16 08/27/16 09:00 History Budesonide [Pulmicort] 0.25 mg IH BID 08/24/16 08/28/16 08/28/16 09:00 History Bupropion HCl [Bupropion HCl ER] 150 mg PO DAILY 08/24/16 08/28/16 08/27/16 09: 00 History Loratadine [Claritin] 10 mg PO DAILY 08/24/16 08/28/16 08/27/16 09:00 History Metoprolol [Lopressor] 50 mg PO DAILY 08/24/16 08/28/16 08/27/16 09:00 History Mometasone Furoate 220 Mcg INH 1 puff INH RTBID 08/24/16 08/28/16 08/27/16 14: 00 History [Asmanex 220 Microgm Inhaler] SIMVAstatin [Zocor] 10 mg PO QHS 08/24/16 08/28/16 08/27/16 21:00 History Tiotropium [place] Inhaler 1 puff INH DAILY 08/24/16 08/28/16 08/27/16 08:00 History [Spiriva] Doxycycline 100 mg PO BID #20 tablet 08/26/16 08/28/16 08/28/16 09:00 Rx Levofloxacin [Levaquin] 500 mg PO DAILY #7 tablet 08/26/16 08/28/16 08/28/16 09: 00 Rx Omeprazole [Prilosec] 20 mg PO DAILY@0700 #30 capsule 08/26/16 08/28/16 Unknown Rx Furosemide [Lasix] 40 mg PO DAILY #30 tablet 08/30/16 Unknown Rx Levofloxacin [Levaquin] 500 mg PO Q24H #7 tablet 08/30/16 Unknown Rx - History of Present Illness -Gen Adult Nature of Presenting Problems: 76 Y/O M presents to ED with Nausea/Vomiting. Pt states that it began last night and has been having burning in his chest. Pt is on 3L O2 at home due to COPD and has hx of CHF. Pt is a poor historian. Location of Pain/Injury: reports: generalized Pain Radiation: reports: no radiation Quality of Pain: reports: none Severity: reports: mild, moderate Onset/Duration: reports: last night Timing: reports: gone now, resolved prior to arrival Context/Activities at Onset: reports: none Associated Symptoms: reports: chest pain (burning), nausea, vomiting. denies: fatigue, fever/chills Review of Systems - Adult - REVIEW OF SYSTEMS - ADULT Constitutional: denies: chills, fever Eyes: reports: no symptoms reported Ears, Nose, Mouth & Throat: reports: no symptoms reported Cardiovascular: reports: chest pain (burning) Respiratory: reports: no symptoms reported Gastrointestinal: reports: nausea, vomiting. denies: abdominal pain, diarrhea Genitourinary: reports: no symptoms reported Musculoskeletal: reports: no symptoms reported Integumentary: reports: no symptoms reported Neurological: reports: no symptoms reported Psychiatric: reports: no symptoms reported Endocrine: reports: no symptoms reported Hematologic/Lymphatic: reports: no symptoms reported Allergic/Immunologic: reports: no symptoms reported All Other Systems: Reviewed and Negative Past History - Adult - PAST MEDICAL HISTORY-ADULT Review of Records: reports: Old Records Reviewed, Nursing Assessment Review, Medications Reviewed, Social history reviewed & non-contributory. Major Childhood Illnesses: reports: denies history Cardiovascular: reports: HTN, hyperlipidemia Respiratory: reports: COPD Gastrointestinal: reports: denies history Obstetrical/Gynecological: reports: denies history Genitourinary: reports: denies history Musculoskeletal: reports: denies history Neurological: reports: dementia Endocrine/Immune: reports: denies history Other Conditions: reports: denies history - PRIOR SURGERIES/PROCEDURES Surgical/Procedure History: reports: cardiac stent - IMMUNIZATION STATUS Childhood Immunizations: See Nurse Assessment Flu Vaccine: See Nurse Assessment - FAMILY HISTORY Family History: reviewed, not pertinent - SOCIAL HISTORY Smoking: non-smoker Substance Use: none/never Alcohol Use Frequency: never Living Situation: family Physical Exam-General - CONSTITUTIONAL General Appearance: alert, no apparent distress - EYES Eyes: PERRL/EOMI - HEAD, EARS, NOSE, MOUTH & THROAT HENMT: moist mucous membranes, normal ENT inspection - NECK Neck: supple, normal inspection - RESPIRATORY Respiratory: decreased breath sounds - CARDIOVASCULAR Cardiovascular: regular rate, rhythm - GASTROINTESTINAL (ABDOMEN) Abdominal Exam: distended, other (epigastic burning) - LYMPHATIC Lymphatic: no adenopathy - MUSCULOSKELETAL Back Exam: no CVA tenderness, no vertebral tenderness Extremity: non-tender - SKIN Integumentary: normal turgor - PSYCHIATRIC Psych/Mental Status: normal thought content, normal thought process Progress - PLAN OF CARE/RESULTS Progress/Plan/Lab Results: Vital Signs - 8 hr 10/14/16 20:29 Temperature 97.8 F Pulse Rate 104 H Respiratory Rate 20 Blood Pressure 125/73 O2 Sat by Pulse Oximetry 93 L Result Diagrams: 10/14/16 22:45 10/14/16 22:45 - EKG 1 Time of EKG reading by physician:: 22:12 EKG Read and Signed by:: Jay Martin EKG Interpretation (*Must complete 3 of following elements*): Normal Rate: 97 Rhythm: NSR Comments: Normal ECG - XRAY 1 XRAY Study: Chest Impression: Normal XRAY Interpretation: LEFT ALICIA diaphragm no acute findings - CT/MRI 1 CT Study: Abdomen, Pelvis Impression: Abnormal (developing or partial Small Bowel Obstruction 2. indeterminate lesions in the right lower lung recommended comparison to previous or futher evalution) CT Results: See Notes - CONSULTS/PCP/HOSPITALIST Notification #1 *Consult/PCP/Hospitalist*: Time Discussed: 01:29 Reason/Comments: Xfer to [facility] Consult Disposition: other (Denied-Admit to [facility] ED) #2 Consult: Time Discussed: 01:34 Reason/Comments: Admit Consult Disposition: Admit (Admit Accepted) Departure - Departure Date of Disposition Decision: 10/15/16 Time of Disposition Decision: 01:01 DIAGNOSIS: Partial small bowel obstruction Chest pain Qualifiers: Chest pain type: unspecified Qualified Code(s): R07.9 - Chest pain, unspecified Disposition: ADMITTED INPATIENT 09 Certified Medical Emergency: Emergent Condition: Stable Referrals and Follow-Ups: Mervin Kulkarni MD [Primary Care Provider] - - Critical Care Note This patient required my direct & personal management of CC.: Yes Attestation - Physician/ KAYLA Attestation Patient care was provided by Advanced Practice Provider:: No The physician spent face to face time with patient:: Yes Advanced Practice Provider documentation review:: Supervising physician onsite and consulted in the evaluation and care of this patient. The physician did have a face to face encounter with the patient. This chart was documented by the indicated scribe, (Kathleen Casanova Scribe) and accurately reflects the services I performed and decisions made by me, Jay Martin MD, as attested by the provider's signature.
[2016-10-14 22:51] LABS: MANUAL DIFF NEEDED? NO
[2016-10-14 23:01] LABS: BASO% 0.3 % (0.0-0.8); EOS# 0.03 X1000 (0.0-0.7); EOS% 0.2 % (0.0-10.0); HEMATOCRIT 41.3 % (42.0-52.0); HEMOGLOBIN 12.8 g/dL (14.0-18.0); IMM GRAN# 0.02 X1000 (0.0-0.04); IMM GRAN% 0.1 % (0.0-0.5); LYMPH# 1.24 X1000 (1.2-3.4); LYMPH% 8.7 % (20.5-51.1); MCV 96.7 FL (81-99); MONO# 0.91 X1000 (0.11-0.59); MONO% 6.4 % (1.7-9.3); NEUT% 84.3 % (42.2-75.2); PLT 255 X1000 (130-400); RBC 4.27 XMIL (4.7-6.1)
[2016-10-14 23:16] LABS: INR 1.02 (0.86-1.15); PROTIME 14.2 Seconds (12.1-15.5)
[2016-10-14 23:20] LABS: ALBUMIN 4.4 g/dL (3.5-5.0); CALCIUM 9.8 mg/dL (8.8-10.2); POTASSIUM 4.7 mmol/L (3.5-5.1); TOTAL BILIRUBIN 0.4 mg/dL (0.20-1.00); TOTAL PROTEIN 7.6 g/dL (6.3-8.3)
--- NOTE | 2016-10-14 23:47 | EKG Report ---
Test Performed on : 10/14/2016 10:12:03 PM Test Reason : Chest Pain Blood Pressure : / mmHG Vent. Rate : 097 BPM Atrial Rate : 097 BPM P-R Int : 138 ms QRS Dur : 082 ms QT Int : 334 ms P-R-T Axes : 023 040 030 degrees QTc Int : 424 ms Normal sinus rhythm. Normal ECG When compared with ECG of 28-AUG-2016 08:20, Sinus rhythm. has replaced Atrial fibrillation. Unconfirmed Result
[2016-10-15] MEDS ORDERED: NS 2,400 ML IV ONE (01:35)
[2016-10-15] MEDS ORDERED: ZOFRAN IV PRN (01:35)
[2016-10-15 02:59] LABS: BILIRUBIN URINE NEGATIVE (NEGATIVE); BLOOD URINE NEGATIVE (NEGATIVE); CLARITY CLEAR (CLEAR); COLOR YELLOW; GLUCOSE URINE NEGATIVE (NEGATIVE); LEUKOCYTES URINE NEGATIVE (NEGATIVE); NITRITE URINE NEGATIVE (NEGATIVE); PROTEIN URINE NEGATIVE (NEGATIVE); SP GRAVITY URINE 1.015; UROBILINOGEN URINE NORMAL
[2016-10-15 03:20] LABS: URINE CULTURE PL NEEDED? YES; URINE EPITHELIAL CELLS <10 /HPF (<10); URINE RBC <10 /HPF (<10); URINE SOURCE CLEAN CATCH; URINE WBC <10 /HPF (<10)
--- NOTE | 2016-10-15 05:24 | Diag Imaging Result Doc PS360 ---
EXAM: CHEST-2 VIEWS HISTORY: CP TECHNIQUE: COMPARISON: 08/28/2016 FINDINGS: Sternal wires are present. The heart is not enlarged. The vessels are not distended. Left hemidiaphragm is elevated. Mild increased interstitial markings in the lung bases believed to be atelectasis. Markings are less pronounced on the prior exam. There is either a tiny left pleural effusion R there is pleural thickening inferiorly. IMPRESSION: Mild increased interstitial markings in the lung bases believed to be atelectasis. Electronically signed by Horacio Orozco 10/15/2016 5:22 AM
--- NOTE | 2016-10-15 08:39 | Diag Imaging Result Doc PS360 ---
EXAM: CT ABDOMEN/PELVIS W/O CONTRAST HISTORY: abdominal pain TECHNIQUE: CT abdomen and pelvis without contrast as per standard protocol. COMPARISON: None. FINDINGS: Preliminary interpretation was given by [facility]. The lung bases show patchy opacities and small nodules at the right lung base considered indeterminate. Correlation with any previous studies is recommended. There is marked elevation of left hemidiaphragm. Evaluation of the solid visceral organs is limited by lack of IV contrast. No calcified gallstones are appreciated. There is nonspecific mild distention of the proximal small bowel loops which may indicate early or partial mechanical small bowel obstruction. There is moderate constipation. There is diverticulosis. There is no evidence for diverticulitis. There is cortical thinning left kidney and a partially duplicated collecting system with. There is a 2 cm hypodensity right kidney which may represent a cyst. Ultrasound could be performed for confirmation. The appendix appears normal. There is ectasia of the infrarenal abdominal aorta to 2.6 cm. There is atherosclerotic vascular calcification. There is lumbar spondylosis. There is no urolithiasis or hydronephrosis. There are splenic granulomata. The prostate gland is enlarged measuring 5 cm. There is no free fluid or free air. IMPRESSION: 1.No urolithiasis or hydronephrosis. 2 cm right renal hypodensity which may represent a cyst. Consider confirmation with ultrasound. 2.Mildly dilated proximal small bowel loops which may indicate early or partial mechanical small bowel obstruction. 3.Indeterminate patchy opacity and nodules lung bases. Correlation with any previous radiographs is suggested. Dedicated CT scan of the thorax could be considered. 4.Constipation. 5.Diverticulosis. 6.Prostatic hypertrophy. 7.Elevated left hemidiaphragm. Electronically signed by Diana Zhong 10/15/2016 8:37 AM
--- NOTE | 2016-10-15 08:50 | Diag Imaging Result Doc PS360 ---
EXAM: KUB ABDOMEN HISTORY: SBO TECHNIQUE: Single view COMPARISON: None. FINDINGS: There are mildly prominent small bowel loops left upper quadrant. Distal gas is present. No mass effect is appreciated. IMPRESSION: Mildly prominent small bowel loops left upper quadrant could represent an early or partial obstruction versus localized ileus. Electronically signed by Diana Zhong 10/15/2016 8:47 AM
[2016-10-15] MEDS ORDERED: VENTOLIN HFA INH PRN (10:30)
[2016-10-15] MEDS ORDERED: SODIUM CHLORIDE 0.9% INJ SCH (10:30)
[2016-10-15] MEDS: PROTONIX IV SCH (11:44)
[2016-10-15] MEDS: NS 1,000 ML IV SCH (11:45)
[2016-10-15] MEDS ORDERED: MAALOX PLUS LIQUID PO PRN (11:46)
[2016-10-15] MEDS ORDERED: FLEET MINERAL OIL ENEMA PR ONE (11:56)
[2016-10-15] MEDS ORDERED: FLEET ENEMA PR ONE (11:56)
--- NOTE | 2016-10-15 14:11 | HISTORY AND PHYSICAL ---
PRIMARY CARE PHYSICIAN: Dr. Mervin Kulkarni CHIEF COMPLAINT: Nausea and vomiting. HISTORY OF PRESENT ILLNESS: This is a 76-year-old male who presented to the emergency room complaining of nausea and vomiting that started the night prior. He also said he had indigestion with epigastric burning that began after vomiting. He denies any pain, just feeling bad all over along with epigastric burning that does follow episode of vomiting. He denies any diarrhea or constipation. He states his last bowel movement was in the last 2 days. He did state he was passing gas. On exam, his abdomen is distended, it is not tender. He does have bowel sounds. A CT of the abdomen and pelvis revealed mildly dilated proximal small bowel loops which could indicate early partial mechanical small bowel obstruction, indeterminate opacity and nodules in the lung bases, constipation and diverticulosis. He is being admitted for further evaluation and treatment. PAST MEDICAL HISTORY: COPD, hypertension, hyperlipidemia, dementia, grade 2 diastolic dysfunction with an EF of 55%. PAST SURGICAL HISTORY: Cardiac stent. SOCIAL HISTORY: He lives with his . He denies any alcohol or illicit drug use. He smoked, quit 2 years ago. ALLERGIES: No known drug allergies. MEDICATIONS: A list will be obtained. REVIEW OF SYSTEMS: A 14-point review of systems is discussed with the patient with pertinent positives stated in the HPI. He denied chest pain, palpitations, syncope, dizziness, cough, fever, chills, PND, orthopnea, black or bloody vomitus, black or bloody stools, diarrhea or constipation. He denies hematuria, dysuria, frequency, urgency. PHYSICAL EXAMINATION: GENERAL: This is a 76-year-old male who is sitting up in the bed, in no distress. VITAL SIGNS: Blood pressure is 113/63 with heart rate of 95, respirations 20, temperature is 99 with O2 saturations of 97% to 98% on 2 L nasal cannula. HEENT: Head is normocephalic and atraumatic. Pupils are equal, round and reactive to light. EOMs are intact. Sclerae are anicteric. Mucous membranes are dry. NECK: Supple with trachea midline. CARDIOVASCULAR: Regular rate and rhythm. S1 and S2 appreciated. PULMONARY: Breath sounds are clear with no increased work of breathing noted. GASTROINTESTINAL: Abdomen is distended. It is firm. It is nontender to palpation with bowel sounds in all 4 quadrants. EXTREMITIES: He does have 1+ lower extremity edema noted bilateral. Calves are nontender, and pulses are palpable x4. NEUROLOGICAL: He is alert and oriented x3. DIAGNOSTIC DATA: WBC is 14.2 with hemoglobin 12.8, hematocrit 41.3 and platelets of 255. D-dimer is 0.62. Sodium is 138, potassium 4.7, BUN is 32, creatinine 1.8 with a glucose of 144. Troponins are negative on multiple occasions. CT of the abdomen and pelvis without revealed mildly dilated prominent proximal small bowel loops which may indicate early or partial mechanical small bowel obstruction, indeterminate patchy opacity and nodules on the lung bases, constipation, diverticulosis, prostatic hypertrophy, elevated left diaphragm and a 2 cm right renal hypodensity which may represent a cyst. Abdominal x-ray revealed mildly prominent small bowel loops in left upper quadrant which could represent an early or partial small bowel obstruction versus localized ileus. ASSESSMENT: 1. Nausea, vomiting. 2. Partial small bowel obstruction versus early ileus. 3. Constipation. 4. Leukocytosis. 5. Elevated D-dimer. 6. History of chronic obstructive pulmonary disease. 7. Hypertension. 8. Grade 2 diastolic dysfunction. PLAN: He will be admitted to the hospital and placed on telemetry. He will be n.p.o. We will start Dulcolax q.6 hours scheduled hopefully to stimulate bowel function. As he is constipated, we will give a Fleet's enema along with a saline enema. We will hold his p.o. medications. We will continue his inhalers. Give IV Protonix with IV Zofran. We will give gentle hydration with saline at 75 an hour and follow. We will start incentive spirometer q.4 hours. We will trend labs daily. We will check another KUB In the morning. Dictated by PAM Dugan for Marcelo Almodovar MD cc: PAM Dugan MD
[2016-10-15] MEDS: DULCOLAX PR SCH ×2 (14:39→20:49)
[2016-10-15] MEDS: NON-FORMULARY MED INH SCH ×2 (16:37→19:17)
[2016-10-15] MEDS: BROVANA NEB INH SCH (19:17)
[2016-10-16] MEDS: NS 1,000 ML IV SCH (01:55)
[2016-10-16] MEDS: DULCOLAX PR SCH ×3 (01:55→14:42)
[2016-10-16 06:23] LABS: HEMATOCRIT 36.8 % (42.0-52.0); HEMOGLOBIN 11.1 g/dL (14.0-18.0); MCH 29.2 PG (27-31); MCHC 30.2 g/dL (33-37); MCV 96.8 FL (81-99); MPV 10.3 FL (7.4-10.4); RBC 3.8 XMIL (4.7-6.1)
[2016-10-16 06:51] LABS: AGAP 12; ALBUMIN 3.7 g/dL (3.5-5.0); ALKALINE PHOSPHATASE 46 U/L (32-122); BUN 21 mg/dL (8-22); CALCIUM 8.9 mg/dL (8.8-10.2); CHLORIDE 103 mmol/L (98-107); COSMO 284; GOT 16 U/L (10-34); GPT 11 U/L (10-44); SODIUM 141 mmol/L (136-145); TCO2 26 mmol/L (25-35); TOTAL PROTEIN 6.5 g/dL (6.3-8.3)
[2016-10-16] MEDS ORDERED: SPIRIVA INH SCH (07:30)
[2016-10-16] MEDS: NON-FORMULARY MED INH SCH (07:34)
[2016-10-16] MEDS: BROVANA NEB INH SCH (07:34)
--- NOTE | 2016-10-16 08:19 | Diag Imaging Result Doc PS360 ---
FLAT/UPRIGHT ABD/1 VIEW CHEST - 10/16/2016 INDICATION: SBO vs ileus TECHNIQUE: Three views COMPARISON: 10/15/2016, 10/14/2016 FINDINGS: There is slight improvement in the patchy, linear atelectasis in the lung bases. Stable left hemidiaphragm elevation. Stable borderline cardiomegaly. No new infiltrates. The stomach is mildly gas distended, but the small and large bowel gas patterns are normal. No evidence of obstruction. No free air. IMPRESSION: Improvement from prior. Electronically signed by Nasir Dee 10/16/2016 8:17 AM
[2016-10-16] MEDS: PROTONIX IV SCH (13:01)
[2016-10-16 15:23] VITALS: BP 155/58
--- NOTE | 2016-10-16 18:16 | DISCHARGE SUMMARY ---
ADMISSION DATE: 10/15/2016 DISCHARGE DATE: 10/16/2016 DISCHARGE DIAGNOSES: 1. Small-bowel ileus, resolved. 2. Abdominal pain resolved. 3. Abdominal distention resolved. 4. Known COPD stable. 5. Hypertension stable. 6. Hyperlipidemia stable. 7. Mild chronic dementia stable. CONSULTATIONS: None. PROCEDURES: None. BRIEF HOSPITAL COURSE: Patient is a 76-year-old male who presented to the emergency department with nausea, vomiting and epigastric pain. He was kept NPO overnight after he was noted to have a partial small bowel obstruction versus early ileus. On discharge, he is awake and alert. He is passing gas. He is eating a GI soft diet without any issues. He is feeling much better and therefore will be discharged home. DISPOSITION: The patient will be discharged home. We will follow up outpatient with Dr. Kulkarni, his primary care as needed. We will continue a GI soft diet for the next several days and then advance as tolerated. TIME SPENT: 35 minutes was spent in total care. cc: Marcelo Almodovar MD
== END 2016-10-16 16:45 | disposition home health service (06) ==
LOC: P.ED 20:18 → INTOOBSV 10-15 01:44 → P.MEDSURG 10-15 01:44
PROVIDERS: ATTEND Family Medicine